=== PATIENT | male | born 1950 | race Caucasian/White ===

== ENCOUNTER 2017-03-25 19:03 | Emergency (ER) | payer MEDICARE, OTHER ==
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
[2017-03-25] MEDS ORDERED: Sodium Chloride 0.9% 1,000 ML IV ONE (19:41)
[2017-03-25 20:16] LABS: CHLORIDE,CL 102 mmol/L (98-110); SODIUM,NA 139 mmol/L (136-146)
[2017-03-25 22:02] VITALS: BP 128/70
[2017-03-25] MEDS ORDERED: Iopamidol 755 MG/ML 500 ML Multipack Bottle IVPUSH STA (22:21)
--- NOTE | 2017-03-26 19:00 | CT ---
EXAM DATE: 03/25/17 PATIENT'S AGE: 66 Patient: JENIFFER FAJARDO Facility: [place], [place] Site . Site : 1950 Study: CT Abdomen/Pelvis [id number]/24/[id number] 9:01:09 PM Ordering Physician: Melissa Simon Final Report: INDICATION : Abdominal pain. TECHNIQUE : CT scan of the abdomen and pelvis. IV CONTRAST Comparison CT scan July 2015. FINDINGS : Lung bases are clear. The head of the pancreas has stippled calcifications with atrophic body of the pancreas. Nonobstructing calcification right kidney. No hydronephrosis. Normal liver, spleen, adrenal glands and left kidney. The GI tract is normal caliber but some diffuse increased fluid is present in the small bowel. No free air. No extraluminal fluid. No mesenteric vein thrombosis or portal vein thrombosis. The prostate is enlarged. Urinary bladder appears normal. Small bilateral inguinal hernias containing fat. Moderate wedging type compression fracture of T12. IMPRESSION : 1. Chronic pancreatitis changes with atrophic pancreatic body and stippled calcification in the head of the pancreas. 2. Nonspecific increased fluid in the small bowel, enteritis could be considered. Correlate with any symptoms of infection. 3. Mild T12 compression fracture correlate with acute symptoms. This is new since previous CT scan July 2015. Please note that all CT scans at this facility use dose modulation, iterative reconstruction, and/or weight-based dosing when appropriate to reduce radiation dose to as low as reasonably achievable. Dictated by Giovany Ortiz MD @ Mar 25 2017 9:30PM (Electronic Signature) Report Signed by Proxy. JHONNYD
== END 2017-03-25 22:11 | disposition home or self-care (01) ==
LOC: MW.ED 19:03
DX: S39.011A Strain of muscle, fascia and tendon of abdomen, initial encounter (principal); I10 Essential (primary) hypertension; E11.9 Type 2 diabetes mellitus without complications; F17.210 Nicotine dependence, cigarettes, uncomplicated; Z88.8 Allergy status to other drugs, medicaments and biological substances; Z79.4 Long term (current) use of insulin; Z79.82 Long term (current) use of aspirin; X50.0XXA Overexertion from strenuous movement or load, initial encounter
CPT/HCPCS: 36415; 74177; 80053; 81001; 85025; 96360; 99284; J7040; Q9967; 99283

== ENCOUNTER 2017-04-12 11:46 | Emergency (ER) | payer MEDICARE, OTHER ==
[2017-04-12 12:03] VITALS: BP 188/89
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
--- NOTE | 2017-04-12 13:59 | CR ---
EXAMINATION: Left knee HISTORY: Pain COMPARISON: None TECHNIQUE: 3 views FINDINGS/IMPRESSION: There is mild joint space narrowing subchondral cystic change within the medial compartment and early osteophyte formation within the patellofemoral compartment.. No fracture or acu te osseous abnormalities demonstrated. There is mild prepatellar soft tissue swelling without a signi ficant joint effusion.
== END 2017-04-12 13:51 | disposition home or self-care (01) ==
LOC: MW.ED 11:46
DX: M25.562 Pain in left knee (principal); E78.00 Pure hypercholesterolemia, unspecified; I10 Essential (primary) hypertension; E11.9 Type 2 diabetes mellitus without complications; F17.210 Nicotine dependence, cigarettes, uncomplicated; Z79.84 Long term (current) use of oral hypoglycemic drugs; Z88.8 Allergy status to other drugs, medicaments and biological substances; Z79.82 Long term (current) use of aspirin; Z79.4 Long term (current) use of insulin
CPT/HCPCS: 73562-26-LT; 73562-LT; 99282; 99283

== ENCOUNTER 2019-01-07 13:01 | Emergency (ER) | payer MEDICARE, OTHER ==
[2019-01-07] MEDS ORDERED: Ketorolac 30 MG/ML SDV IM ONE (13:39)
--- NOTE | 2019-01-07 14:23 | CR ---
EXAMINATION: Left shoulder HISTORY: Pain COMPARISON: None TECHNIQUE: 3 views FINDINGS/IMPRESSION: Old healed mid left clavicle fracture identified. Nondisplaced distal clavicle fracture is noted just proximal to the acromioclavicular joint. Osseous structures otherwise appear osteopenic. Mild glenohumeral osteoarthritic changes.
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
[2019-01-07 14:50] VITALS: BP 130/68
== END 2019-01-07 14:50 | disposition home or self-care (01) ==
LOC: MW.ED 13:01
DX: S42.035A Nondisplaced fracture of lateral end of left clavicle, initial encounter for closed fracture (principal); S50.312A Abrasion of left elbow, initial encounter; S00.81XA Abrasion of other part of head, initial encounter; I10 Essential (primary) hypertension; E11.9 Type 2 diabetes mellitus without complications; F17.210 Nicotine dependence, cigarettes, uncomplicated; Z79.4 Long term (current) use of insulin; Z79.899 Other long term (current) drug therapy; Z88.8 Allergy status to other drugs, medicaments and biological substances; W10.1XXA Fall (on)(from) sidewalk curb, initial encounter
CPT/HCPCS: 73030; 82962; 96372; 99283; J1885

== ENCOUNTER 2019-04-28 13:49 | Emergency (ER) | payer MEDICARE, OTHER ==
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
[2019-04-28 15:08] LABS: CARBON DIOXIDE,CO2 26.2 mmol/L (21.0-32.0); POTASSIUM,K 4.4 mmol/L (3.5-5.1)
[2019-04-28 16:18] VITALS: BP 139/66; PULSE 82
== END 2019-04-28 15:34 | disposition home or self-care (01) ==
LOC: MW.ED 13:49
DX: L02.213 Cutaneous abscess of chest wall (principal); I10 Essential (primary) hypertension; E11.9 Type 2 diabetes mellitus without complications; F17.210 Nicotine dependence, cigarettes, uncomplicated; Z79.4 Long term (current) use of insulin; Z79.899 Other long term (current) drug therapy; Z88.4 Allergy status to anesthetic agent; Z91.048 Other nonmedicinal substance allergy status
CPT/HCPCS: 36415; 80053; 85025; 99283

== ENCOUNTER 2019-06-20 05:46 | Day surgery (SDC) | payer OTHER ==
[2019-06-20] MEDS ORDERED: Sodium Chloride 0.9% 2.5 ML Syringe FLUSH PRN (05:58)
[2019-06-20] MEDS ORDERED: Atropine 0.1 MG/ML 10 ML Syringe IVPUSH PRN ×2 (05:58)
[2019-06-20] MEDS ORDERED: Naloxone 0.4 MG/ML Syringe IVPUSH PRN (05:58)
[2019-06-20] MEDS ORDERED: Albuterol 0.083% 2.5 MG/3 ML Neb Soln NEB PRN (05:58)
[2019-06-20] MEDS ORDERED: Sodium Chloride 0.9% 10 ML SDV IV PRN (05:58)
[2019-06-20] MEDS ORDERED: 50% Dextrose in Water 50 ML Syringe IVPUSH PRN (05:58)
[2019-06-20] MEDS ORDERED: Sodium Chloride 0.9% 10 ML Syringe FLUSH PRN (05:58)
[2019-06-20] MEDS ORDERED: fentaNYL 100 MCG/2 ML SDV IVPUSH PRN (05:58)
[2019-06-20] MEDS ORDERED: EPINEPHrine 1:10,000 1 MG/10 ML Syringe IVPUSH PRN (05:58)
[2019-06-20] MEDS ORDERED: Lidocaine 2% 5 ML SDV ONE (06:08)
[2019-06-20] MEDS ORDERED: Propofol 200 MG/20 ML SDV ONE (06:08)
[2019-06-20] MEDS ORDERED: fentaNYL 100 MCG/2 ML SDV ONE (06:08)
[2019-06-20 06:23] LABS: HEMOGLOBIN A1C 11.1 % (4.5-6.2)
[2019-06-20 06:27] LABS: BLOOD UREA NITROGEN,BUN 22 mg/dL (7.0-18.0); CHLORIDE,CL 98 mmol/L (98-107); GLUCOSE RANDOM 301 mg/dL (74-106); POTASSIUM,K 4.1 mmol/L (3.5-5.1); SODIUM,NA 133 mmol/L (136-148)
[2019-06-20] MEDS ORDERED: Lactated Ringers 1,000 ML IV SCH (06:45)
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
[2019-06-20] MEDS ORDERED: Bupivacaine 25%/EPINEPHrine/PF 30 ML ONE (07:01)
[2019-06-20] MEDS ORDERED: Clindamycin Phosphate in D5W 600 MG in Premix Bag 50 BAG IV ONE ×2 (07:32)
--- NOTE | 2019-06-20 07:34 | PCM.OPNOTE ---
- General Post-Op/Procedure Note Date of Surgery/Procedure: 06/20/19 Operative Procedure(s): i/d R breast mass, bx R breast Findings: subcutaneous abscess under nipple, and breast tissue biopsied; [id number] Pre Op Diagnosis: R breast infection Post-Op Diagnosis: Same Anesthesia Technique: Local, MAC Primary Surgeon: Oniel Castro Pathology: sent Complications: None Condition: Good
--- NOTE | 2019-06-20 07:37 | PCM.POSTAN ---
POST ANESTHESIA ASSESSMENT - MENTAL STATUS Mental Status: Alert, Oriented - VITAL SIGNS Vital Signs: Last Vital Signs Temp 97.5 F 06/20/19 07:12 Pulse 64 06/20/19 07:32 Resp 14 06/20/19 07:32 BP 104/54 L 06/20/19 07:32 Pulse Ox 94 L 06/20/19 07:32 - RESPIRATORY Respiratory Status: Respiratory Rate WNL, Airway Patent, O2 Saturation Stable - CARDIOVASCULAR CV Status: Pulse Rate WNL, Blood Pressure Stable - GASTROINTESTINAL GI Status: No Symptoms - PAIN Pain Score: 0 - POST OP HYDRATION Hydration Status: Adequate & Stable
[2019-06-20] MEDS ORDERED: Clindamycin Phosphate in D5W 50 ML ONE (07:50)
[2019-06-20] MEDS ORDERED: ePHEDrine 50 MG/ML SDV ONE (07:54)
[2019-06-20] MEDS ORDERED: Clindamycin Phosphate in D5W 600 MG in Premix Bag 1 BAG IV ONE ×2 (08:15)
--- NOTE | 2019-06-20 08:48 | PCM48HPAN ---
Post Anesthesia Note - EVALUATION WITHIN 48HRS OF ANESTHETIC Vital Signs in Normal Range: Yes Patient Participated in Evaluation: Yes Respiratory Function Stable: Yes Airway Patent: Yes Cardiovascular Function Stable: Yes Hydration Status Stable: Yes Pain Control Satisfactory: Yes Nausea and Vomiting Control Satisfactory: Yes Mental Status Recovered: Yes Vital Signs: Last Vital Signs Temp 36.4 C 06/20/19 07:12 Pulse 64 06/20/19 07:32 Resp 14 06/20/19 07:32 BP 104/54 L 06/20/19 07:32 Pulse Ox 94 L 06/20/19 07:32 - COMMENTS/OBSERVATIONS Free Text/Narrative:: no anesthesia problems
--- NOTE | 2019-06-20 10:25 | OR ---
SURGEON: Oniel Castro MD DATE OF PROCEDURE: 06/20/2019 PREOPERATIVE DIAGNOSIS: Right breast mass. POSTOPERATIVE DIAGNOSIS: Right breast mass. PROCEDURES PERFORMED: 1. Incision and drainage, right breast mass. 2. Right breast exploration. 3. Biopsy of right breast. PRIMARY SURGEON: Oniel Castro MD. COMPLICATIONS: None. FINDINGS: 1. The patient's right breast mass already drained, ruptured prior to surgery, so a lot of pus already drained out. 2. Under the nipple has several cavities, , not communicating. Several cavities containing abscess. Incision and drainage and Gram stain and biopsy, right breast. DESCRIPTION OF PROCEDURE: The patient was taken to operating room and placed in a supine position. Upon induction of mild general sedation, the patient's right breast was prepped and draped in a sterile fashion. The chest has been shaved prior to coming to the operating room. Time-out was being called. The patient identified, procedure identified, and antibiotic given. Procedure then started. Using a 15 scalpel, a circumferential incision from 11 o'clock to 5 o'clock including rupture draining pinpoint area was opened and led to several cavities under the breast. Using a surgeon's finger, blunt dissection and squeezing and opened up all the cavity and squeezed all the abscess and C and S, aerobic, anaerobic, and Gram stain have been sent. Noted there was a lot of scar tissue from prior surgery and squeezed out some white solid stuff from the nipple, something like a sebaceous cyst, they were solid. Also sent for Gram stain. This was sent for pathology. The area was copiously irrigated and then packed with quarter-inch iodoform gauze and with appropriate dressing. The patient was awakened, transferred to recovery room in hemodynamically stable condition. The patient tolerated the procedure well. There were no intraoperative complications. Dr. Castro was present through the whole procedure. BENITA / EDWAR /[id number]
[2019-06-20 12:20] VITALS: BP 114/64; PULSE 72
== END 2019-06-20 08:30 | disposition home or self-care (01) ==
LOC: MW.SDS 05:46
PROVIDERS: ATTEND Surgery
DX: N61.1 Abscess of the breast and nipple (principal); I10 Essential (primary) hypertension; E78.00 Pure hypercholesterolemia, unspecified; E11.9 Type 2 diabetes mellitus without complications; I25.10 Atherosclerotic heart disease of native coronary artery without angina pectoris; M17.0 Bilateral primary osteoarthritis of knee; F17.210 Nicotine dependence, cigarettes, uncomplicated; Z79.4 Long term (current) use of insulin; Z88.8 Allergy status to other drugs, medicaments and biological substances; Z91.048 Other nonmedicinal substance allergy status
CPT/HCPCS: 19020; 36415; 80048; 82962; 83036; 87070; 87205; 93005; J2001; J2704; J3010; J7120; S0077; J3490

== ENCOUNTER 2019-08-22 06:44 | Day surgery (SDC) | payer OTHER ==
[~2019-08-22 06:44] MED LIST: Lactated Ringers 1,000 ML IV SCH; ceFAZolin 2 GM in Premix Bag 1 BAG IV ONE
[2019-08-22] MEDS ORDERED: fentaNYL 100 MCG/2 ML SDV ONE (07:15)
[2019-08-22] MEDS ORDERED: Propofol 200 MG/20 ML SDV ONE (07:15)
[2019-08-22] MEDS ORDERED: Midazolam 1 MG/ML 2 ML SDV ONE (07:15)
[2019-08-22] MEDS ORDERED: Ondansetron 4 MG/2 ML SDV ONE (07:15)
[2019-08-22] MEDS ORDERED: Bupivacaine 25%/EPINEPHrine/PF 30 ML ONE (07:25)
[2019-08-22] MEDS ORDERED: Octyl 2-Cyanoacrylate 1 Tube ONE (07:25)
--- NOTE | 2019-08-22 07:26 | PCM.PREANE ---
Preanesthetic Assessment - Anesthesia/Transfusion/Family Hx Anesthesia History: Prior Anesthesia Reaction Other Type of Anesthesia Reaction Comment: Adverse reaction to Versed Family History of Anesthesia Reaction: No Transfusion History: No Prior Transfusion(s) Intubation History: Unknown - Review of Systems General: No Symptoms Pulmonary: No Symptoms Cardiovascular: No Symptoms Gastrointestinal: No Symptoms Neurological: No Symptoms Other: Reports: None - Physical Assessment Height: 5 ft 7 in Weight: 68.492 kg ASA Class: 3 Mental Status: Alert & Oriented x3 Airway Class: Mallampati = 2 Dentition: Reports: Normal Dentition (4 teeth left in lower jaw), Partial (4 teeth upper (only teeth there)) Thyro-Mental Finger Breadths: 3 Mouth Opening Finger Breadths: 3 ROM/Head Extension: Full Lungs: Clear to Auscultation, Normal Respiratory Effort Cardiovascular: Regular Rate, Regular Rhythm - Allergies Allergies/Adverse Reactions: Allergies Allergy/AdvReac Type Severity Reaction Status Date / Time mercury (elemental) Allergy Rash Verified 08/18/19 10:22 midazolam HCl [From Versed] Allergy Change Verified 08/18/19 10:22 Mental Status - Blood Blood Available: No - Anesthesia Plan Pre-Op Medication Ordered: None - Acknowledgements Anesthesia Type Planned: General Anesthesia Pt an Appropriate Candidate for the Planned Anesthesia: Yes Alternatives and Risks of Anesthesia Discussed w Pt/Guardian: Yes Pt/Guardian Understands and Agrees with Anesthesia Plan: Yes PreAnesthesia Questionnaire HEENT History: Reports: Other (See Below) Other HEENT History: wears glasses, has upper partial removable denture Cardiovascular History: Reports: CAD, Hypertension Other Cardiovascular History: previoiusly took medication for hypertention- stopped a "few months" ago because of hypotention Respiratory History: Reports: None Other Respiratory History: 55 yr history of smoking, current use 1 pack per day Gastrointestinal History: Reports: Diverticulosis (sigmoid) Other Gastrointestinal History: hx: Pancreatic surgery Genitourinary History: Reports: Renal Calculus Other Genitourinary History: passed kidney stone 4 months ago Musculoskeletal History: Reports: Fracture, Osteoarthritis Other Musculoskeletal History: hx of fx wrist Neurological History: Reports: Concussion, Head Trauma Psychiatric History: Reports: None Endocrine/Metabolic History: Reports: IDDM Hematologic History: Reports: None Immunologic History: Reports: None Oncologic (Cancer) History: Reports: None Dermatologic History: Reports: None - Infectious Disease History Infectious Disease History: Reports: Chicken Pox - Past Surgical History Head Surgeries/Procedures: Reports: None HEENT Surgical History: Reports: None Cardiovascular Surgical History: Reports: None Respiratory Surgical History: Reports: None GI Surgical History: Reports: Other (See Below) Other GI Surgeries/Procedures: repair of traumatic injury to pancreas ( pancreatic resection) Neurological Surgical History: Reports: None Musculoskeletal Surgical History: Reports: Other (See Below) Other Musculoskeletal Surgeries/Procedures:: excision of infected right breast mass a few weeks ago, has been draining and has been on antibiotics recently Oncologic Surgical History: Reports: Other (See Below) - SUBSTANCE USE Smoking Status *Q: Current Every Day Smoker (< 1ppd) Tobacco Use Within Last Twelve Months: Cigarettes Recreational Drug Use History: No - HOME MEDS Home Medications: Home Meds Insulin Glarg,Human.Rec.Analog [LantUS Solostar] 26 units SUBCUT BEDTIME [History] Alogliptin Benzoate [Alogliptin] 25 mg PO QAM 06/19/19 [History] - CURRENT (IN HOUSE) MEDS Current Meds: Current Medications Lactated Ringer's (Ringers, Lactated) 1,000 mls @ 125 mls/hr IV ASDIRECTED ROSENDO Discontinued Medications Fentanyl (Sublimaze) Confirm Administered Dose 100 mcg .ROUTE .STK-MED ONE Stop: 08/22/19 07:16 Cefazolin Sodium/Dextrose 2 gm (/ Premix) 50 mls @ 100 mls/hr IV ONETIME ONE Stop: 08/22/19 05:29 Midazolam HCl (Versed 1 Mg/Ml) Confirm Administered Dose 2 mg .ROUTE .STK-MED ONE Stop: 08/22/19 07:16 Ondansetron HCl (Zofran) Confirm Administered Dose 4 mg .ROUTE .STK-MED ONE Stop: 08/22/19 07:16 Propofol (Diprivan 20 Ml) Confirm Administered Dose 200 mg .ROUTE .STK-MED ONE Stop: 08/22/19 07:16
[2019-08-22] MEDS ORDERED: ceFAZolin 1 GM Vial ONE (08:10)
[2019-08-22] MEDS ORDERED: Sodium Chloride 0.9% 20 ML ONE (08:10)
[2019-08-22] MEDS ORDERED: Ketorolac 30 MG/ML SDV ONE (08:25)
--- NOTE | 2019-08-22 09:22 | PCM.POSTAN ---
POST ANESTHESIA ASSESSMENT - MENTAL STATUS Mental Status: Alert, Oriented - VITAL SIGNS Vital Signs: Last Vital Signs Temp 97.3 F 08/22/19 09:05 Pulse 60 08/22/19 09:20 Resp 13 08/22/19 09:20 BP 138/71 08/22/19 09:20 Pulse Ox 96 08/22/19 09:20 - RESPIRATORY Respiratory Status: Respiratory Rate WNL, Airway Patent, O2 Saturation Stable - CARDIOVASCULAR CV Status: Pulse Rate WNL, Blood Pressure Stable - GASTROINTESTINAL GI Status: No Symptoms - POST OP HYDRATION Hydration Status: Adequate & Stable - OBSERVATIONS Free Text/Narrative:: Pt alert and stable for discharge to phase II recovery.
--- NOTE | 2019-08-22 09:44 | PCM.OPNOTE ---
- General Post-Op/Procedure Note Date of Surgery/Procedure: 08/22/19 Operative Procedure(s): excisional biospy Findings: large well encapsulated mass on the medial R upper thigh, and a small skin lesion on the scrotum; skin incision 4.1 X 3 cm, margin 0.5 mm; [id number] Pre Op Diagnosis: scrotal masses Post-Op Diagnosis: Same Anesthesia Technique: General ET Tube Primary Surgeon: Oniel Castro Pathology: sent Complications: None Condition: Good Free Text/Narrative:: Intake & Output 08/21/19 08/22/19 08/22/19 22:59 06:59 14:59 Intake Total 950 Balance 950
--- NOTE | 2019-08-22 09:52 | PCM48HPAN ---
Post Anesthesia Note - EVALUATION WITHIN 48HRS OF ANESTHETIC Vital Signs in Normal Range: Yes Patient Participated in Evaluation: Yes Respiratory Function Stable: Yes Airway Patent: Yes Cardiovascular Function Stable: Yes Hydration Status Stable: Yes Pain Control Satisfactory: Yes Nausea and Vomiting Control Satisfactory: Yes Mental Status Recovered: Yes Vital Signs: Last Vital Signs Temp 36.3 C 08/22/19 09:05 Pulse 60 08/22/19 09:20 Resp 13 08/22/19 09:20 BP 138/71 08/22/19 09:20 Pulse Ox 96 08/22/19 09:20 - COMMENTS/OBSERVATIONS Free Text/Narrative:: No anesthesia problems.
[2019-08-22 10:43] VITALS: BP 139/70; PULSE 61
--- NOTE | 2019-08-22 13:36 | OR ---
SURGEON: Oniel Castro MD DATE OF PROCEDURE: 08/22/2019 PREOPERATIVE DIAGNOSIS: Scrotal mass. POSTOPERATIVE DIAGNOSIS: Scrotal mass. PROCEDURE PERFORMED: Excisional biopsy. PRIMARY SURGEON: Oniel Castro MD. COMPLICATIONS: None. FINDINGS: A large well encapsulated mass on the medial right upper thigh and a small skin lesion on the scrotum and both excised into one piece connected by a piece of skin. Skin incision 4.1 x 3 cm, margin is 0.5 mm. DESCRIPTION OF PROCEDURE: The patient was taken to the operating room, placed in the supine position. Upon induction of general endotracheal anesthesia, the patient's right scrotal area was prepped and draped in a sterile fashion and has been shaved prior to this. Time-out was being called, patient identified, procedure identified, and IV Ancef 2 g given too. On excision, no area had been marked. The patient had 2 masses, one is between the skin of the thigh and the scrotum, another one is very close to it. Probably about 10 mm from the mass is a skin lesion, about a size of 5 mm. Since they were so close, it was decided to excise them together. A fish-mouth incision was made, which connected the masses. As a matter of fact, the mass was more to the medial aspect of the upper right thigh than on the scrotum, and the skin lesion was on the scrotal surface, so the excision was only on the skin, did not get into the scrotum, did not go through the dartos muscle. The whole mass was sent for frozen, came back as sebaceous cyst. Good hemostasis achieved by use of electrocautery. The incision was about 4.1 x 3 cm and irrigated and closed with 3-0 Ethilon simple interrupted and followed with bacitracin cream. The patient was then awakened, extubated, and transferred to recovery in hemodynamically stable condition. The patient tolerated the procedure well. There were no intraoperative complications. Dr. Castro was present through the whole procedure. BENITA / EDWAR /[id number]
== END 2019-08-22 10:10 | disposition home or self-care (01) ==
LOC: MW.SDS 06:44
PROVIDERS: ATTEND Surgery
DX: L72.0 Epidermal cyst (principal); I10 Essential (primary) hypertension; E78.00 Pure hypercholesterolemia, unspecified; I25.10 Atherosclerotic heart disease of native coronary artery without angina pectoris; E11.9 Type 2 diabetes mellitus without complications; M17.0 Bilateral primary osteoarthritis of knee; F17.210 Nicotine dependence, cigarettes, uncomplicated; Z88.8 Allergy status to other drugs, medicaments and biological substances; Z79.4 Long term (current) use of insulin; Z91.048 Other nonmedicinal substance allergy status
CPT/HCPCS: 11426; 88304; 88331; J0690; J1885; J2405; J2704; J3010; J7120; A9270-GY; J2250

== ENCOUNTER 2019-11-08 14:41 | Emergency (ER) | payer OTHER, MEDICARE ==
[2019-11-08] MEDS ORDERED: Nitroglycerin 0.4 MG Tab.SL SL PRN (14:46)
[2019-11-08] MEDS ORDERED: Sodium Chloride 0.9% 2.5 ML Syringe FLUSH PRN ×2 (14:46)
[2019-11-08] MEDS ORDERED: Sodium Chloride 0.9% 10 ML Syringe FLUSH PRN (14:46)
[2019-11-08] MEDS ORDERED: Morphine 4 MG/ML Syringe IVPUSH ONE (14:47)
[2019-11-08] MEDS ORDERED: Ondansetron 4 MG/2 ML SDV ONE (14:50)
[2019-11-08] MEDS ORDERED: Heparin Sodium 5,000 Units/ML Vial IVPUSH ONE (14:50)
[2019-11-08] MEDS ORDERED: Heparin Sod,Pork In 0.45% Nacl 25,000 UNIT/500 ML IV.SOLN IV SCH (14:50)
--- NOTE | 2019-11-08 14:55 | EDM.PDOC ---
ED HPI GENERAL MEDICAL PROBLEM - General Chief Complaint: Cardiovascular Problem Stated Complaint: HEART ATTACK Time Seen by Provider: 11/08/19 14:45 - History of Present Illness INITIAL COMMENTS - FREE TEXT/NARRATIVE: History of present illness: [Presents 45 minutes after sudden onset of substernal chest pain that caused shortness of breath radiation into the jaw nausea and sweating. He is never had this kind of thing before is a history of diabetes and tobacco abuse. She received 325 aspirin in route he is actively having chest pain in the emergency department ] Review of systems: As per history of present illness and below otherwise all systems reviewed and negative. Past medical history: As per history of present illness and as reviewed below otherwise noncontributory. Surgical history: As per history of present illness and as reviewed below otherwise noncontributory. Social history: No reported history of drug or alcohol abuse. Family history: As per history of present illness and as reviewed below otherwise noncontributory. Physical exam: HEENT: Atraumatic, normocephalic, pupils reactive, negative for conjunctival pallor or scleral icterus, mucous membranes moist, throat clear, neck supple, nontender, trachea midline. Lungs: Clear to auscultation, breath sounds equal bilaterally, chest nontender. Heart: S1S2, regular, negative for clicks, rubs, or JVD. Abdomen: Soft, nondistended, nontender. Negative for masses or hepatosplenomegaly. Negative for costovertebral tenderness. Pelvis: Stable nontender. Genitourinary: Deferred. Rectal: Deferred. Extremities: Atraumatic, negative for cords or calf pain. Neurovascular unremarkable. Neuro: Awake, alert, oriented. Cranial nerves II through XII unremarkable. Cerebellum unremarkable. Motor and sensory unremarkable throughout. Exam nonfocal. Skin: Diaphoretic Diagnostics: [] Therapeutics: [] Impression: [] Plan: Patient will be emergently transferred to [facility] at [facility] [] Definitive disposition and diagnosis as appropriate pending reevaluation and review of above. Chest Pain Score (Numeric/FACES): 10 - Related Data Allergies Allergy/AdvReac Type Severity Reaction Status Date / Time midazolam HCl [From Versed] Allergy Severe Change Verified 11/08/19 14:49 Mental Status mercury (elemental) Allergy Rash Verified 11/08/19 14:49 Home Meds: Home Meds Insulin Glarg,Human.Rec.Analog [LantUS Solostar] 26 units SUBCUT BEDTIME [History] Alogliptin Benzoate [Alogliptin] 25 mg PO QAM 06/19/19 [History] Past Medical History HEENT History: Reports: Other (See Below) Other HEENT History: wears glasses, has upper partial removable denture Cardiovascular History: Reports: CAD, Hypertension Other Cardiovascular History: previoiusly took medication for hypertention- stopped a "few months" ago because of hypotention Respiratory History: Reports: None Other Respiratory History: 55 yr history of smoking, current use 1 pack per day Gastrointestinal History: Reports: Diverticulosis Other Gastrointestinal History: hx: Pancreatic surgery Genitourinary History: Reports: Renal Calculus Other Genitourinary History: passed kidney stone 4 months ago Musculoskeletal History: Reports: Fracture, Osteoarthritis Other Musculoskeletal History: hx of fx wrist Neurological History: Reports: Concussion, Head Trauma Psychiatric History: Reports: None Endocrine/Metabolic History: Reports: IDDM Hematologic History: Reports: None Immunologic History: Reports: None Oncologic (Cancer) History: Reports: None Dermatologic History: Reports: None - Infectious Disease History Infectious Disease History: Reports: Chicken Pox - Past Surgical History Head Surgeries/Procedures: Reports: None HEENT Surgical History: Reports: None Cardiovascular Surgical History: Reports: None Respiratory Surgical History: Reports: None GI Surgical History: Reports: Other (See Below) Other GI Surgeries/Procedures: repair of traumatic injury to pancreas ( pancreatic resection) Neurological Surgical History: Reports: None Musculoskeletal Surgical History: Reports: Other (See Below) Other Musculoskeletal Surgeries/Procedures:: excision of infected right breast mass a few weeks ago, has been draining and has been on antibiotics recently Oncologic Surgical History: Reports: Other (See Below) Social & Family History - Family History Family Medical History: Noncontributory - Caffeine Use Caffeine Use: Reports: None ED ROS GENERAL - Review of Systems Review Of Systems: See Below ED EXAM, GENERAL - Physical Exam Exam: See Below Course - Vital Signs Text/Narrative:: Prehospital EKG reveals ST segment elevation clearly in [address] segment depressions in V1 to 3 and 4 read interpreted by me the rate was atrial fibrillation at 44 bpm In-hospital EKG at 2:41 PM reveals an atrial fibrillation rate of 47 bpm with right bundle branch block there is ST segment elevation markedly in lead III moderately and aVF with profound ST segment depressions in V1 to 3 and 4 read interpreted by me EKGs indicate an acute ST segment elevation myocardial infarction. Jenniffer the case with Dr. Guerra at [facility] emergency department they will accept the patient he will be emergently transferred to the emergency department at that facility where he will be able to go to [facility] Patient received aspirin prior to arrival he will get morphine Zofran and nitroglycerin with heparin drip and bolus in the emergency department prior to transfer. Last Recorded V/S: Last Vital Signs Temp 36.4 C 11/08/19 14:46 Pulse 48 L 11/08/19 14:46 Resp 22 H 11/08/19 14:46 BP 151/87 H 11/08/19 14:46 Pulse Ox 100 11/08/19 14:46 - Orders/Labs/Meds Orders: Active Orders 24 hr Category Date Time Status EKG Documentation Completion [RC] STAT Care 11/08/19 14:46 Ordered Chest 1V Frontal [CR] Stat Exams 11/08/19 14:46 Ordered CBC WITH AUTO DIFF [HEME] Stat Lab 11/08/19 14:46 Ordered COMPREHENSIVE METABOLIC PN,CMP [CHEM] Stat Lab 11/08/19 14:46 Ordered TROPONIN I [CHEM] Stat Lab 11/08/19 14:46 Ordered Nitroglycerin [Nitrostat] Med 11/08/19 14:46 Ordered 0.4 mg SL Q5M PRN Sodium Chloride 0.9% [Saline Flush] Med 11/08/19 14:46 Ordered 10 ml FLUSH ASDIRECTED PRN Sodium Chloride 0.9% [Saline Flush] Med 11/08/19 14:46 Ordered 2.5 ml FLUSH ASDIRECTED PRN Sodium Chloride 0.9% [Saline Flush] Med 11/08/19 14:46 Ordered 2.5 ml FLUSH ASDIRECTED PRN Saline Lock Insert [OM.PC] Stat Oth 11/08/19 14:46 Ordered Medication Orders Nitroglycerin (Nitrostat) 0.4 mg SL Q5M PRN PRN Reason: Chest Pain Sodium Chloride (Saline Flush) 2.5 ml FLUSH ASDIRECTED PRN PRN Reason: Keep Vein Open Sodium Chloride (Saline Flush) 10 ml FLUSH ASDIRECTED PRN PRN Reason: Keep Vein Open Sodium Chloride (Saline Flush) 2.5 ml FLUSH ASDIRECTED PRN PRN Reason: Keep Vein Open Meds: Medications Generic Name Dose Route Start Last Admin Trade Name Freq PRN Reason Stop Dose Admin Nitroglycerin 0.4 mg 11/08/19 14:46 Nitrostat SL Q5M PRN Chest Pain Sodium Chloride 2.5 ml 11/08/19 14:46 Saline Flush FLUSH ASDIRECTED PRN Keep Vein Open Sodium Chloride 10 ml 11/08/19 14:46 Saline Flush FLUSH ASDIRECTED PRN Keep Vein Open Sodium Chloride 2.5 ml 11/08/19 14:46 Saline Flush FLUSH ASDIRECTED PRN Keep Vein Open Discontinued Medications Generic Name Dose Route Start Last Admin Trade Name Freq PRN Reason Stop Dose Admin Morphine Sulfate 4 mg 11/08/19 14:47 Morphine IVPUSH 11/08/19 14:48 ONETIME ONE Departure - Departure Time of Disposition: 14:52 Disposition: DC/Tfer to Acute Hospital 02 Reason for Transfer *Q: Primary PCI Indicated Condition: Fair Clinical Impression: Chest pain Acute myocardial infarction Qualifiers: Myocardial infarction type: ST elevation myocardial infarction Sepsis Event Note - Evaluation Sepsis Screening Result: No Definite Risk - Focused Exam Vital Signs: Vital Signs Temp Pulse Resp BP Pulse Ox 11/08/19 14:46 36.4 C 48 L 22 H 151/87 H 100 Date Exam was Performed: 11/08/19 Time Exam was Performed: 14:50 - My Orders Last 24 Hours: My Active Orders 11/08/19 14:46 EKG Documentation Completion [RC] STAT Chest 1V Frontal [CR] Stat CBC WITH AUTO DIFF [HEME] Stat COMPREHENSIVE METABOLIC PN,CMP [CHEM] Stat TROPONIN I [CHEM] Stat Nitroglycerin [Nitrostat] 0.4 mg SL Q5M PRN Sodium Chloride 0.9% [Saline Flush] 10 ml FLUSH ASDIRECTED PRN Sodium Chloride 0.9% [Saline Flush] 2.5 ml FLUSH ASDIRECTED PRN Sodium Chloride 0.9% [Saline Flush] 2.5 ml FLUSH ASDIRECTED PRN Saline Lock Insert [OM.PC] Stat - Assessment/Plan Last 24 Hours: My Active Orders 11/08/19 14:46 EKG Documentation Completion [RC] STAT Chest 1V Frontal [CR] Stat CBC WITH AUTO DIFF [HEME] Stat COMPREHENSIVE METABOLIC PN,CMP [CHEM] Stat TROPONIN I [CHEM] Stat Nitroglycerin [Nitrostat] 0.4 mg SL Q5M PRN Sodium Chloride 0.9% [Saline Flush] 10 ml FLUSH ASDIRECTED PRN Sodium Chloride 0.9% [Saline Flush] 2.5 ml FLUSH ASDIRECTED PRN Sodium Chloride 0.9% [Saline Flush] 2.5 ml FLUSH ASDIRECTED PRN Saline Lock Insert [OM.PC] Stat
[2019-11-08] MEDS ORDERED: Heparin Sod,Pork In 0.45% Nacl 25,000 UNIT/500 ML IV.SOLN IV ONE (14:56)
[2019-11-08] MEDS ORDERED: Ondansetron 4 MG/2 ML SDV IVPUSH ONE (14:56)
--- NOTE | 2019-11-08 15:09 | CR ---
Chest: Portable view of the chest was obtained. Comparison: Prior chest x-ray of 03/25/[address] of 05/08/19. Lung markings are increased which appeared to be chronic. Nodular density is noted within the left midlung which is an interval change. Lungs otherwise are clear with nothing acute being seen. Heart size within normal limits for portable technique. Degenerative change is noted within the spine. Impression: 1. Nodular opacity within the left mid chest. This is not seen on prior studies. Noncontrast chest CT recommended to see if this represents a real nodule. 2. Chronic interstitial change. Diagnostic code #9 This report was dictated in MDT
[2019-11-08 15:24] VITALS: BP 151/112; PULSE 74
[2019-11-08 15:35] LABS: CHLORIDE,CL 100 mmol/L (98-107); POTASSIUM,K 3.6 mmol/L (3.5-5.1); SODIUM,NA 137 mmol/L (136-148)
[2019-11-08 15:45] LABS: BLOOD UREA NITROGEN,BUN 16 mg/dL (7.0-18.0); CARBON DIOXIDE,CO2 22.2 mmol/L (21.0-32.0); GLUCOSE RANDOM 275 mg/dL (74-106)
== END 2019-11-08 15:21 ==
LOC: MW.ED 14:41
DX: I21.3 ST elevation (STEMI) myocardial infarction of unspecified site (principal); I25.10 Atherosclerotic heart disease of native coronary artery without angina pectoris; I10 Essential (primary) hypertension; E11.9 Type 2 diabetes mellitus without complications; F17.210 Nicotine dependence, cigarettes, uncomplicated; Z79.4 Long term (current) use of insulin; Z88.4 Allergy status to anesthetic agent
CPT/HCPCS: 36415; 71045; 80053; 84484; 85025; 93005; 96374; 96375; 99285; J1644; J2270; J2405; 99284

== ENCOUNTER 2020-06-18 04:20 | Emergency (ER) | payer MEDICARE, OTHER ==
--- NOTE | 2020-06-18 04:23 | EDM.PDOC ---
ED HPI GENERAL MEDICAL PROBLEM - General Chief Complaint: Chest Pain Stated Complaint: CHEST IS BURNING Time Seen by Provider: 06/18/20 04:21 Source of Information: Reports: Patient, Old Records History Limitations: Reports: No Limitations - History of Present Illness INITIAL COMMENTS - FREE TEXT/NARRATIVE: This is a very pleasant 69-year-old male with a past medical history of myocardial infarction and coronary artery disease, diabetes mellitus presenting with chest discomfort. He was seen in our emergency department in October 2019 where he was noted to have a STEMI and was emergently transferred to the [facility] in [place]. Patient reports a 1 day history of right-sided chest pain described as "burning". Isolated to the area of the right areola and the surrounding soft ti ssue around the right nipple. Patient has a history of a chest wall abscess that required drainage by Dr. Castro. He reports occasional persistent purulent drainage which she is able to express. This morning, around 1 AM, he began experiencing burning chest pain to the site of his abscess which was drained quite a while ago. This burning sensation started to spread out laterally from the areola and he is concerned that he may have "popped something". He denies any fever, chills, cough, shortness of breath. Denies diaphoresis, nausea, or vomiting. Patient denies history of venous thromboembolism, lower extremity pain or swelling, hemoptysis, recent surgery or immobilization or long travel, history of active malignancy, or hormonal medication/product usage. ROS: A 10-point review of systems was negative, except as noted in the HPI (or in the ROS section of this note). Past medical history: Reviewed, no additional pertinent history. Surgical history: Reviewed in system, no additional pertinent history. Social history: Reviewed in system, no additional pertinent history. Family history: Reviewed in system, no additional pertinent history. PHYSICAL EXAM Vital signs reviewed. Nursing notes reviewed. Constitutional: Awake, alert, non-distressed. Head: Normocephalic, atraumatic. Eyes: EOMI, conjunctiva normal, no discharge, no scleral icterus. Ears, Nose, Throat: External ears and nose normal, moist oral mucosa. Cardiovascular: 2+ radial pulse, capillary refill less than 2 seconds. Pulmonary: normal work of breathing, no accessory muscle use. Abdomen/GI: Soft, nontender, nondistended, no guarding or rigidity, no masses. Musculoskeletal: No deformities. Integumentary: Appropriate color for ethnicity, warm, dry, no pallor or jaundice, no rash. There is a well-healed surgical incision scar to the left side of the right areola. The patient is quite tender over the right areola and the tissues just lateral to the right areola, but I do not appreciate any fluctuance or fluid collection to suggest an abscess and there is no rash. Neurologic: Alert, answering questions appropriately, normal speech, no facial droop, moving all extremities well. Psychiatric: Appropriate mood and affect, normal thought process. This patient was seen and evaluated during the 2019 SARS-CoV-2 novel coronavirus pandemic period. Community viral transmission is ongoing at time of this encounter and the emergency department is operating under pandemic response procedures. right nipple area Pain Score (Numeric/FACES): 7 - Related Data Allergies Allergy/AdvReac Type Severity Reaction Status Date / Time midazolam HCl [From Versed] Allergy Severe Change Verified 06/18/20 04:34 Mental Status mercury (elemental) Allergy Rash Verified 06/18/20 04:34 Home Meds: Home Meds Insulin Glarg,Human.Rec.Analog [LantUS Solostar] 30 units SUBCUT BEDTIME 03/25/17 [History] Aspirin 1 tab PO DAILY 06/18/20 [History] Clopidogrel [Plavix] 75 mg PO DAILY 06/18/20 [History] Insulin Aspart [NovoLOG] 1 injection INJECT ASDIRECTED 06/18/20 [History] Rosuvastatin [Crestor] 10 mg PO DAILY 06/18/20 [History] Past Medical History HEENT History: Reports: Other (See Below) Other HEENT History: wears glasses, has upper partial removable denture Cardiovascular History: Reports: CAD, Hypertension Other Cardiovascular History: previoiusly took medication for hypertention- stopped a "few months" ago because of hypotention Respiratory History: Reports: None Other Respiratory History: 55 yr history of smoking, current use 1 pack per day Gastrointestinal History: Reports: Diverticulosis Other Gastrointestinal History: hx: Pancreatic surgery Genitourinary History: Reports: Renal Calculus Other Genitourinary History: passed kidney stone 4 months ago Musculoskeletal History: Reports: Fracture, Osteoarthritis Other Musculoskeletal History: hx of fx wrist Neurological History: Reports: Concussion, Head Trauma Psychiatric History: Reports: None Endocrine/Metabolic History: Reports: IDDM Hematologic History: Reports: None Immunologic History: Reports: None Oncologic (Cancer) History: Reports: None Dermatologic History: Reports: None - Infectious Disease History Infectious Disease History: Reports: Chicken Pox - Past Surgical History Head Surgeries/Procedures: Reports: None HEENT Surgical History: Reports: None Cardiovascular Surgical History: Reports: None Respiratory Surgical History: Reports: None GI Surgical History: Reports: Other (See Below) Other GI Surgeries/Procedures: repair of traumatic injury to pancreas (pancreatic resection) Neurological Surgical History: Reports: None Musculoskeletal Surgical History: Reports: Other (See Below) Other Musculoskeletal Surgeries/Procedures:: excision of infected right breast mass a few weeks ago, has been draining and has been on antibiotics recently Oncologic Surgical History: Reports: Other (See Below) Social & Family History - Family History Family Medical History: No Pertinent Family History - Caffeine Use Caffeine Use: Reports: None ED ROS GENERAL - Review of Systems Review Of Systems: See Below ED EXAM, GENERAL - Physical Exam Exam: See Below ED ULTRASOUND - Evaluation of Abscess Location: Right nipple/areola Abscess Identified: No Loculations noted: No US Evaluation of Abscess Text: No drainable abscess visualized. #1 Interpretation EKG Interpretation Comments: 12-Lead ECG Interpretation Acquired: 4:38 AM Rhythm: Sinus rhythm Rate: 73 bpm Thayer: Normal Intervals: Right bundle branch block Ectopy: None RV Strain: No obvious RV strain pattern. ST Segments/T-Waves: Old inferior myocardial infarction with Q waves in II, III, aVF. Acute Ischemic Changes: None apparent Interpretation: No STEMI Course - Vital Signs Text/Narrative:: 61-year-old male presenting with right-sided chest pain described as "burning". Patient hemodynamically stable, afebrile, well-appearing, looks nontoxic. Differential diagnosis includes but is not limited to: Acute coronary syndrome, pneumothorax, pleurisy, GERD, early shingles, occult trauma, pulmonary embolism, and many others. Twelve-lead EKG looks nonischemic. We will plan for IV access, labs, chest x- rays, pain control, second troponin. 5:48 AM: Chest x-rays are clear. CBC reassuring. Metabolic panel shows hyperglycemia but normal CO2. Renal function electrolytes are reassuring. Troponin is negative. Twelve-lead EKG looks nonischemic, shows old inferior myocardial infarction. I think this could very possibly be early zoster given the description of burning pain and tenderness to light touch (no rash yet) but we are going to obtain a contrasted CT study of the chest to evaluate for any recurrence of the chest wall abscess that required drainage earlier this year. The chest wall seems fairly tender to palpation and I have low suspicion for acute coronary syndrome or pulmonary embolism given that patient's description of the pain and physical examination findings. Patient denies any central or left-sided chest discomfort or any shortness of breath and he has a Wells PE score of 0. He has a heart score of 4 at baseline but I have low suspicion for acute coronary syndrome based on my gestalt. 6:02 AM: Chest CT shows no acute findings, noted stable mild interstitial pulmonary fibrosis. Evaluation of the chest wall shows a surgical clip and soft tissue induration medial and posterior to the right nipple about 1.5 cm in size. I did speak with the reading radiologist who could not exclude an abscess. I did perform [id number] limited ultrasound and I noted no drainable fluid co llection to suggest an abscess requiring I&D. Patient states that he was expressing drainage from the area of his prior surgical I&D site but I did not appreciate any drainable abscess based on my physical examination of the area in question. At this point there is no objective evidence of myocardial ischemia. My suspicion for ACS or pulmonary embolism is quite low. I did discuss with the patient staying for a second troponin at about 8:00, but he wishes to go home and wants to decline this. There are no pulmonary infiltrates to suggest pneumonia. The pain is not pleuritic in nature and there is no history of any trauma. I suspect that the patient could be experiencing early shingles. We will plan to discharge him home with symptomatic treatment with extra strength acetaminophen and lidocaine patches along with a heating pad. I counseled the patient that should he develop a rash, he should be reevaluated by primary care physician or here in the emergency department to start antiviral therapy for shingles. Plan: Patient is stable to discharge home with outpatient primary care clinic follow-up. Strict emergency department return precautions were provided, patient indicated understanding. All questions were answered prior to departure. Discharged in good condition. Last Recorded V/S: Last Vital Signs Temp 36.1 C 06/18/20 04:30 Pulse 67 06/18/20 06:00 Resp 18 06/18/20 06:00 BP 125/66 06/18/20 06:00 Pulse Ox 97 06/18/20 06:00 - Orders/Labs/Meds Orders: Active Orders 24 hr Category Date Time Status Cardiac Monitoring [RC] . DIRECTED Care 06/18/20 04:45 Active EKG 12 Lead [EKG Documentation Completion] [RC] STAT Care 06/18/20 04:21 Active Pulse Oximetry [RC] ASDIRECTED Care 06/18/20 04:45 Active Labs: Laboratory Tests 06/18/20 06/18/20 Range/Units 04:50 04:50 WBC 8.06 (4.0-11.0) K/uL RBC 4.96 (4.50-5.90) M/uL Hgb 15.3 (13.0-17.0) g/dL Hct 45.5 (38.0-50.0) % MCV 91.7 (80.0-98.0) fL MCH 30.8 (27.0-32.0) pg MCHC 33.6 (31.0-37.0) g/dL RDW Std Deviation 43.4 (28.0-62.0) fl RDW Coeff of Fahad 13 (11.0-15.0) % Plt Count 187 (150-400) K/uL MPV 11.10 (7.40-12.00) fL Neut % (Auto) 59.8 (48.0-80.0) % Lymph % (Auto) 24.9 (16.0-40.0) % Cannon % (Auto) 13.0 (0.0-15.0) % Eos % (Auto) 1.9 (0.0-7.0) % Baso % (Auto) 0.4 (0.0-1.5) % Neut # (Auto) 4.8 (1.4-5.7) K/uL Lymph # (Auto) 2.0 (0.6-2.4) K/uL Cannon # (Auto) 1.1 H (0.0-0.8) K/uL Eos # (Auto) 0.2 (0.0-0.7) K/uL Baso # (Auto) 0.0 (0.0-0.1) K/uL Nucleated RBC % 0.0 /100WBC Nucleated RBCs # 0 K/uL Sodium 138 (136-148) mmol/L Potassium 4.4 (3.5-5.1) mmol/L Chloride 102 (98-107) mmol/L Carbon Dioxide 26.7 (21.0-32.0) mmol/L BUN 16 (7.0-18.0) mg/dL Creatinine 1.3 (0.8-1.3) mg/dL Est Cr Clr Drug Dosing 52.34 mL/min Estimated GFR (MDRD) 54.9 ml/min Glucose 183 H (74-106) mg/dL Calcium 8.9 (8.5-10.1) mg/dL Total Bilirubin 0.4 (0.2-1.0) mg/dL AST 30 (15-37) IU/L ALT 71 H (14-63) IU/L Alkaline Phosphatase 82 (46-116) U/L Troponin I < 0.050 (0.000-0.056) ng/mL Total Protein 6.9 (6.4-8.2) g/dL Albumin 3.7 (3.4-5.0) g/dL Globulin 3.2 (2.6-4.0) g/dL Albumin/Globulin Ratio 1.2 (0.9-1.6) Meds: Medications Discontinued Medications Generic Name Dose Route Start Last Admin Trade Name Freq PRN Reason Stop Dose Admin Acetaminophen 1,000 mg 06/18/20 04:48 06/18/20 05:13 Tylenol Extra Strength PO 06/18/20 04:49 1,000 mg ONETIME ONE Administration Iopamidol 75 ml 06/18/20 05:59 06/18/20 06:01 Isovue Multipack-370 (76%) IVPUSH 06/18/20 06:00 75 ml ONETIME STA Administration Lidocaine 700 mg 06/18/20 04:51 06/18/20 05:13 Lidoderm 5% TOP 06/18/20 04:52 700 mg ONETIME ONE Administration Oxycodone HCl 10 mg 06/18/20 04:48 06/18/20 05:13 Oxycodone PO 06/18/20 04:49 10 mg ONETIME ONE Administration Departure - Departure Time of Disposition: 06:03 Disposition: Home, Self-Care 01 Condition: Good Clinical Impression: Right-sided chest wall pain Chest pain Qualifiers: Chest pain type: other chest pain Qualified Code(s): R07.89 - Other chest pain Referrals: Patrice Yadav MD [Primary Care Provider] - 3 Days (For reevaluation of symptoms.) Forms: ED Department Discharge Additional Instructions: You were seen in the emergency department for right-sided chest wall pain. At this point your CT scan, x-rays, EKG, and blood work all look reassuring. I see no evidence of a heart attack and I am not suspicious for a blood clot in the lung. I am suspicious that you may be developing shingles, rash that can show up on 1 side of the body. You should monitor your skin for the next several days and if you develop a red rash, I recommend you be reevaluated by your primary care doctor to see if they want to start you on antiviral medication for shingles. I recommend [id number] extra strength acetaminophen (1000 mg every 6 hours) and ibuprofen (400 mg every 6 hours) to help treat your pain. I also recommend a heating pad and [id number] lidocaine patches. Warning signs to come back to the ER include: Worsening chest pain, shortness of breath, or any other new or concerning symptoms. Please return the emergency department immediately if your symptoms worsen or if you feel worse. Thank you for choosing the [facility] emergency department in [place] for your medical needs today. It was a pleasure caring for you. The following information is given to patients seen in the emergency department who are being discharged. This information is to outline your options for follow-up care. We provide all patients seen in our emergency department with a follow-up referral. The need for follow-up, as well as the timing and circumstances, are variable depending upon the specifics of your emergency department visit. If you don't have a primary care physician on staff, we will provide you with a referral. We always advise you to contact your personal physician following an emergency department visit to inform them of the circumstance of the visit and for follow-up with them and/or the need for any referrals to a consulting specialist. The emergency department will also refer you to a specialist when appropriate. This referral assures that you have the opportunity for follow-up care with a specialist. All of these measure are taken in an effort to provide you with optimal care, which includes your follow-up. Under all circumstances we always encourage you to contact your private physician who remains a resource for coordinating your care. When calling for follow-up care, please make the office aware that this follow-up is from your recent emergency room visit. If for any reason you are refused follow-up, please contact the [facility] Emergency Department at and asked to speak to the emergency department charge nurse. If you do not have a primary care physician that is caring for you, you can contact these clinics below to set up an appointment to establish care: [facility] - Primary Care [address] [place] [address] [place] [address] Sepsis Event Note (ED) - Focused Exam Vital Signs: Vital Signs Temp Pulse Resp BP Pulse Ox 06/18/20 06:00 67 18 125/66 97 06/18/20 04:30 36.1 C 80 18 148/85 H 99 - My Orders Last 24 Hours: My Active Orders 06/18/20 04:21 EKG 12 Lead [EKG Documentation Completion] [RC] STAT 06/18/20 04:45 Cardiac Monitoring [RC] . DIRECTED Pulse Oximetry [RC] ASDIRECTED - Assessment/Plan Last 24 Hours: My Active Orders 06/18/20 04:21 EKG 12 Lead [EKG Documentation Completion] [RC] STAT 06/18/20 04:45 Cardiac Monitoring [RC] . DIRECTED Pulse Oximetry [RC] ASDIRECTED
[2020-06-18] MEDS ORDERED: Acetaminophen 500 MG Tab PO ONE (04:48)
[2020-06-18] MEDS ORDERED: oxyCODONE 5 MG Tab PO ONE (04:48)
[2020-06-18] MEDS ORDERED: Lidocaine 5% 700 MG Patch TOP ONE (04:51)
[2020-06-18 05:21] LABS: BLOOD UREA NITROGEN,BUN 16 mg/dL (7.0-18.0); CARBON DIOXIDE,CO2 26.7 mmol/L (21.0-32.0); CHLORIDE,CL 102 mmol/L (98-107); GLUCOSE RANDOM 183 mg/dL (74-106); POTASSIUM,K 4.4 mmol/L (3.5-5.1); SODIUM,NA 138 mmol/L (136-148)
--- NOTE | 2020-06-18 05:33 | CR ---
INDICATION: Right-sided chest pain COMPARISON: 11/08/2019 FINDINGS: PA and lateral views of the chest were obtained. There is no change in mild prominence of interstitial markings consistent with mild pulmonary fibrosis. The previously seen mild nodularity seen in the left lateral mid lung is no longer present, consistent with resolution of inflammatory disease. The heart remains normal in size. The mediastinum is normal in appearance. The osseous structures are normal in appearance for the patient`s age. IMPRESSION: No active disease seen in the chest. Stable mild interstitial pulmonary fibrosis. Resolution of previously seen mild left lateral midlung infiltrate. Dictated by Arun Cruz MD @ Jun 18 2020 5:29AM Signed by Dr. Arun Cruz @ Jun 18 2020 5:32AM
[2020-06-18] MEDS ORDERED: Iopamidol 755 MG/ML 500 ML Multipack Bottle IVPUSH STA (05:59)
[2020-06-18 06:06] VITALS: BP 125/66; PULSE 67
--- NOTE | 2020-06-18 06:14 | CT ---
INDICATION: History an abscess of the right breast which was treated in 2019 now with recurrent pain with question of recurrent abscess COMPARISON: May 08, 2019 TECHNIQUE: : CT examination of the chest was performed with the uneventful intravenous administration of 75 cc of Isovue 370 while thin axial sections were obtained from above the apices of the lungs to the lung bases. Please note that all CT scans at this facility use dose modulation, iterative reconstruction, and/or weight-based dosing when appropriate to reduce radiation dose to as low as reasonably achievable. FINDINGS: : HEART and MEDIASTINUM: The heart size is normal. There is no mediastinal or hilar adenopathy or mass. There is no pericardial effusion.Atherosclerotic vascular calcification LUNGS: Moderate upper lobe predominant emphysema, paraseptal and central lobular variant. Similar appearance to the prior study PLEURAL SPACES: There is no pleural effusion, pneumothorax or pleural based mass. VISUALIZED UPPER ABDOMEN: Chronic calcific pancreatitis. Very last image shows a stone in the renal pelvis. This stone was present in the renal pelvis on 2019 study there is perinephric stranding bilaterally and this is unchanged. OSSEOUS STRUCTURES: Demineralization and degenerative change. No acute fracture or destructive process TUBES and LINES: None. CHEST WALL: There is gynecomastia. A surgical clip is noted in the right breast probably from prior incision and drainage. This was present previously. Soft tissue induration medial to and posterior to the right nipple. This measures about 1.5 centimeters. It is difficult to say whether this represents an abscess though it does not clearly have a low-density center and an enhancing wall. Sonography is advised for further evaluation and to ensure that this is an inflammatory focus IMPRESSION: 1. Gynecomastia. Surgical clip associated with the right breast probably related to prior incision and drainage. This clip was present previously. Abnormal soft tissue medial to and posterior to the right nipple measuring 1.5 centimeters could be inflammatory though it is difficult to say with certainty whether it is an abscess or a mass. Correlation with diagnostic imaging of the breast to begin with sonography is advised. 2. Significant emphysema. This is unchanged. 3. Chronic calcific pancreatitis and right-sided nephrolithiasis. 4. Discussed with Dr. Collins at 6:10 a.m. on August 19, [address] all [address] scans at this facility use dose modulation, iterative reconstruction, and/or weight-based dosing when appropriate to reduce radiation dose to as low as reasonably achievable. Dictated by Venu Cohen MD @ Jun 18 2020 6:02AM Signed by Dr. Venu Cohen @ Jun 18 2020 6:13AM
== END 2020-06-18 06:35 | disposition home or self-care (01) ==
LOC: MW.ED 04:20
DX: R07.89 Other chest pain (principal); I10 Essential (primary) hypertension; I25.10 Atherosclerotic heart disease of native coronary artery without angina pectoris; M19.90 Unspecified osteoarthritis, unspecified site; E11.9 Type 2 diabetes mellitus without complications; F17.210 Nicotine dependence, cigarettes, uncomplicated; I45.10 Unspecified right bundle-branch block; Z91.048 Other nonmedicinal substance allergy status; Z88.4 Allergy status to anesthetic agent; Z79.4 Long term (current) use of insulin; Z79.82 Long term (current) use of aspirin; Z79.02 Long term (current) use of antithrombotics/antiplatelets; Z79.899 Other long term (current) drug therapy
CPT/HCPCS: 36415; 71046; 71260; 80053; 84484; 85025; 93005; 99284; A9270; Q9967; 93010; 99283

== ENCOUNTER 2020-12-10 22:36 | Observation (INO) | payer MEDICARE, OTHER ==
--- NOTE | 2020-12-10 23:13 | EDM.PDOC ---
ED HPI GENERAL MEDICAL PROBLEM - General Chief Complaint: Back Pain or Injury Stated Complaint: RIGHT LOWER BACK PAIN, SIDE PAIN,PAIN IN TESTICLE Time Seen by Provider: 12/10/20 23:13 Source of Information: Reports: Patient History Limitations: Reports: No Limitations - History of Present Illness INITIAL COMMENTS - FREE TEXT/NARRATIVE: Patient is a 70-year-old male presents today for right lower quadrant pain. Patient said pain started earlier today has been radiating to his right groin as well. Patient denies any urinary symptoms and states he is urinating fine. Patient does report some nausea but no vomiting. Patient denies any fever chills or other complaints. right side, groin Pain Score (Numeric/FACES): 6 - Related Data Allergies Allergy/AdvReac Type Severity Reaction Status Date / Time midazolam HCl [From Versed] Allergy Severe Change Verified 12/10/20 23:05 Mental Status mercury (elemental) Allergy Rash Verified 12/10/20 23:05 Home Meds: Home Meds Insulin Glarg,Human.Rec.Analog [LantUS Solostar] 30 units SUBCUT BEDTIME 03/25/17 [History] Aspirin 1 tab PO DAILY 06/18/20 [History] Clopidogrel [Plavix] 75 mg PO DAILY 06/18/20 [History] Insulin Aspart [NovoLOG] 1 injection INJECT ASDIRECTED 06/18/20 [History] Rosuvastatin [Crestor] 10 mg PO DAILY 12/10/20 [History] Past Medical History HEENT History: Reports: Other (See Below) Other HEENT History: wears glasses, has upper partial removable denture Cardiovascular History: Reports: CAD, Hypertension, ND Other Cardiovascular History: previoiusly took medication for hypertention- stopped a "few months" ago because of hypotention Respiratory History: Reports: None Other Respiratory History: 55 yr history of smoking, current use 1 pack per day Gastrointestinal History: Reports: Diverticulosis Other Gastrointestinal History: hx: Pancreatic surgery Genitourinary History: Reports: Renal Calculus Other Genitourinary History: passed kidney stone 4 months ago Musculoskeletal History: Reports: Fracture, Osteoarthritis Other Musculoskeletal History: hx of fx wrist Neurological History: Reports: Concussion, Head Trauma Psychiatric History: Reports: None Endocrine/Metabolic History: Reports: IDDM Insulin Pump Model and Salon Shampoo Assistant: None Hematologic History: Reports: None Immunologic History: Reports: None Oncologic (Cancer) History: Reports: None Dermatologic History: Reports: None - Infectious Disease History Infectious Disease History: Reports: Chicken Pox - Past Surgical History Head Surgeries/Procedures: Reports: None HEENT Surgical History: Reports: None Cardiovascular Surgical History: Reports: None Respiratory Surgical History: Reports: None GI Surgical History: Reports: Other (See Below) Other GI Surgeries/Procedures: repair of traumatic injury to pancreas (pancreatic resection) Neurological Surgical History: Reports: None Musculoskeletal Surgical History: Reports: None Other Musculoskeletal Surgeries/Procedures:: excision of infected right breast mass a few weeks ago, has been draining and has been on antibiotics recently Oncologic Surgical History: Reports: Other (See Below) Social & Family History - Family History Family Medical History: No Pertinent Family History - Tobacco Use Packs/Tins Daily: 1 - Caffeine Use Caffeine Use: Reports: None - Recreational Drug Use Recreational Drug Use: No ED ROS GENERAL - Review of Systems Review Of Systems: See Below Constitutional: Reports: No Symptoms HEENT: Reports: No Symptoms Respiratory: Reports: No Symptoms Cardiovascular: Reports: No Symptoms Endocrine: Reports: No Symptoms GI/Abdominal: Reports: Abdominal Pain, Nausea : Reports: No Symptoms Musculoskeletal: Reports: No Symptoms Skin: Reports: No Symptoms Neurological: Reports: No Symptoms Psychiatric: Reports: No Symptoms Hematologic/Lymphatic: Reports: No Symptoms Immunologic: Reports: No Symptoms ED EXAM, GI/ABD - Physical Exam Exam: See Below Exam Limited By: No Limitations General Appearance: Alert, WD/WN, No Apparent Distress Respiratory/Chest: No Respiratory Distress, Lungs Clear, Normal Breath Sounds Cardiovascular: Normal Peripheral Pulses, Regular Rate, Rhythm GI/Abdominal Exam: Normal Bowel Sounds, Soft, Non-Tender (Male) Exam: No Hernia, Normal Inspection Back Exam: Normal Inspection Extremities: Normal Inspection, Normal Range of Motion Neurological: Alert, Oriented, CN II-XII Intact, Normal Cognition, Normal Gait Course - Vital Signs Last Recorded V/S: Last Vital Signs Temp 97.8 F 12/10/20 23:00 Pulse 63 12/11/20 02:01 Resp 16 12/11/20 02:01 BP 134/64 12/11/20 02:01 Pulse Ox 97 12/11/20 02:01 - Orders/Labs/Meds Orders: Active Orders 24 hr Category Date Time Status Patient Status [ADT] Routine ADT 12/11/20 02:18 Ordered CORONAVIRUS COVID-19 ABDULAZIZ [MOLEC] Stat Lab 12/11/20 02:05 Ordered Labs: Laboratory Tests 12/10/20 12/10/20 12/11/20 Range/Units 23:25 23:25 00:40 WBC 14.08 H (4.0-11.0) K/uL RBC 5.40 (4.50-5.90) M/uL Hgb 16.7 (13.0-17.0) g/dL Hct 48.6 (38.0-50.0) % MCV 90.0 (80.0-98.0) fL MCH 30.9 (27.0-32.0) pg MCHC 34.4 (31.0-37.0) g/dL RDW Std Deviation 43.6 (28.0-62.0) fl RDW Coeff of Fahad 13 (11.0-15.0) % Plt Count 174 (150-400) K/uL MPV 11.30 (7.40-12.00) fL Neut % (Auto) 79.2 (48.0-80.0) % Lymph % (Auto) 9.4 L (16.0-40.0) % [place] % (Auto) 10.5 (0.0-15.0) % Eos % (Auto) 0.8 (0.0-7.0) % Baso % (Auto) 0.1 (0.0-1.5) % Neut # (Auto) 11.1 H (1.4-5.7) K/uL Lymph # (Auto) 1.3 (0.6-2.4) K/uL [place] # (Auto) 1.5 H (0.0-0.8) K/uL Eos # (Auto) 0.1 (0.0-0.7) K/uL Baso # (Auto) 0.0 (0.0-0.1) K/uL Nucleated RBC % 0.0 /100WBC Nucleated RBCs # 0 K/uL Sodium 137 (136-148) mmol/L Potassium 4.1 (3.5-5.1) mmol/L Chloride 101 (98-107) mmol/L Carbon Dioxide 22.5 (21.0-32.0) mmol/L BUN 23 H (7.0-18.0) mg/dL Creatinine 1.4 H (0.8-1.3) mg/dL Est Cr Clr Drug Dosing 46.33 mL/min Estimated GFR (MDRD) 50.2 ml/min Glucose 191 H (74-106) mg/dL Calcium 8.8 (8.5-10.1) mg/dL Phosphorus 4.6 (2.6-4.7) mg/dL Magnesium 1.9 (1.8-2.4) mg/dL Total Bilirubin 0.6 (0.2-1.0) mg/dL AST 22 (15-37) IU/L ALT 63 (14-63) IU/L Alkaline Phosphatase 90 (46-116) U/L Total Protein 7.2 (6.4-8.2) g/dL Albumin 3.6 (3.4-5.0) g/dL Globulin 3.6 (2.6-4.0) g/dL Albumin/Globulin Ratio 1.0 (0.9-1.6) Lipase 13 L (73-393) U/L Urine Color YELLOW Urine Appearance SLT CLOUDY Urine pH 5.0 (5.0-8.0) Ur Specific [place] 1.020 (1.001-1.035) Urine Protein TRACE H (NEGATIVE) mg/dL Urine Glucose (UA) >=1000 (NEGATIVE) mg/dL Urine Ketones 15 H (NEGATIVE) mg/dL Urine Occult Blood LARGE H (NEGATIVE) Urine Nitrite NEGATIVE (NEGATIVE) Urine Bilirubin NEGATIVE (NEGATIVE) Urine Urobilinogen 0.2 (<2.0) EU/dL Ur Leukocyte Esterase NEGATIVE (NEGATIVE) Urine RBC 10-15 (0-2/HPF) Urine WBC 4-8 (0-5/HPF) Ur Epithelial Cells FEW (NONE-FEW) Calcium Oxalate Crystal MODERATE (NEGATIVE) Urine Bacteria FEW (NEGATIVE) Meds: Medications Discontinued Medications Generic Name Dose Route Start Last Admin Trade Name Freq PRN Reason Stop Dose Admin Iopamidol 100 ml 12/11/20 00:42 12/11/20 00:43 Iopamidol 755 Mg/Ml 500 Ml Multipack Bottle IVPUSH 12/11/20 00:43 100 ml ONETIME STA Administration Ketorolac Tromethamine Confirm 12/10/20 23:32 12/10/20 23:35 Ketorolac 30 Mg/Ml Sdv Administered 12/10/20 23:33 Not Given Dose 30 mg .ROUTE .STK-MED ONE Ketorolac Tromethamine 30 mg 12/10/20 23:34 12/10/20 23:35 Ketorolac 30 Mg/Ml Sdv IVPUSH 12/10/20 23:35 30 mg ONETIME ONE Administration Ondansetron HCl Confirm 12/10/20 23:32 12/10/20 23:35 Ondansetron 4 Mg/2 Ml Sdv Administered 12/10/20 23:33 Not Given Dose 4 mg .ROUTE .STK-MED ONE Ondansetron HCl 4 mg 12/10/20 23:33 12/10/20 23:34 Ondansetron 4 Mg/2 Ml Sdv IVPUSH 12/10/20 23:34 4 mg ONETIME ONE Administration Departure - Departure Time of Disposition: 02:19 Disposition: Refer to Observation Condition: Good Clinical Impression: Kidney stone on right side - Discharge Information *PRESCRIPTION DRUG MONITORING PROGRAM REVIEWED*: Not Applicable *COPY OF PRESCRIPTION DRUG MONITORING REPORT IN PATIENT MICHAELA: Not Applicable Instructions: Kidney Stones Referrals: PCP,None [Primary Care Provider] - Forms: ED Department Discharge Sepsis Event Note (ED) - Evaluation Sepsis Screening Result: No Definite Risk - Focused Exam Vital Signs: Vital Signs Temp Pulse Resp BP Pulse Ox 12/11/20 02:01 63 16 134/64 97 12/10/20 23:00 97.8 F 68 16 176/83 H 96 - My Orders Last 24 Hours: My Active Orders 12/11/20 02:05 CORONAVIRUS COVID-19 ABDULAZIZ [MOLEC] Stat 12/11/20 02:18 Patient Status [ADT] Routine - Assessment/Plan Last 24 Hours: My Active Orders 12/11/20 02:05 CORONAVIRUS COVID-19 ABDULAZIZ [MOLEC] Stat 12/11/20 02:18 Patient Status [ADT] Routine Plan: Patient is a 70-year-old male presents today for abdominal pain right lower quadrant. Will rule out appendicitis possible stone. Obtain UA CT scan and reassess. Patient also given pain control.
[2020-12-10] MEDS ORDERED: Ondansetron 4 MG/2 ML SDV ONE (23:32)
[2020-12-10] MEDS ORDERED: Ketorolac 30 MG/ML SDV ONE (23:32)
[2020-12-10] MEDS ORDERED: Ondansetron 4 MG/2 ML SDV IVPUSH ONE (23:33)
[2020-12-10] MEDS ORDERED: Ketorolac 30 MG/ML SDV IVPUSH ONE (23:34)
[2020-12-10 23:51] LABS: CARBON DIOXIDE,CO2 22.5 mmol/L (21.0-32.0); POTASSIUM,K 4.1 mmol/L (3.5-5.1)
[2020-12-11] MEDS ORDERED: Iopamidol 755 MG/ML 500 ML Multipack Bottle IVPUSH STA (00:42)
--- NOTE | 2020-12-11 01:58 | CT ---
INDICATION: Right lower quadrant pain TECHNIQUE: Axial images were obtained from the diaphragm to the pubic symphysis. Reformats were obtained in the coronal and sagittal plane. IV Contrast: 100 cc Isovue 370 Oral Contrast: None COMPARISON: Abdomen and pelvis CT 04/16/2018 FINDINGS: Lower chest: Basilar discoid atelectasis. Liver: Unremarkable. Normal in size and attenuation. No masses. Gallbladder and bile ducts: Unremarkable. No stones or inflammation. No biliary dilatation. Spleen: Unremarkable. Normal in size without mass. Pancreas: Prominent calcifications in the pancreas consistent with chronic pancreatitis. Moderate pancreatic atrophy. Adrenal glands: Unremarkable. No nodules. Kidneys: Delayed nephrogram on the right with moderate right pelvicaliectasis and obstructing right ureteropelvic junction stone measuring 2.0 x 1.7 centimeters. Vasculature: Atherosclerosis without abdominal aortic aneurysm. GI tract: The stomach is unremarkable mildly prominent loop of small bowel within the left abdomen with the suture line, likely postsurgical. Large amount of stool within the colon. Pelvis: Moderate prostatic enlargement. Bones: Old T12 compression fracture. IMPRESSION: 1. Nephrolithiasis with moderate right hydronephrosis and obstructing right ureteropelvic junction stone measuring 2.0 x 1.7 centimeters. 2. Chronic pancreatitis. Please note that all CT scans at this facility use dose modulation, iterative reconstruction, and/or weight-based dosing when appropriate to reduce radiation dose to as low as reasonably achievable. Dictated by Ibrahima Rico MD @ 12/11/2020 1:58:[address] Ibrahima Rico @ Dec 11 2020 1:58AM
[2020-12-11] MEDS ORDERED: cefTRIAXone 1 GM Vial IVPUSH ONE (02:19)
[2020-12-11] MEDS ORDERED: Sodium Chloride 0.9% 1,000 ML IV ONE (02:20)
[2020-12-11] MEDS ORDERED: Albuterol/Ipratropium 3.0-0.5 MG/3 ML Neb Soln NEB PRN (05:06)
[2020-12-11] MEDS ORDERED: Ondansetron 4 MG/2 ML SDV IVPUSH PRN (05:06)
[2020-12-11] MEDS ORDERED: Glucagon,Human Recombinant 1 MG Vial IM PRN ×2 (05:13→17:54)
[2020-12-11] MEDS ORDERED: 50% Dextrose in Water 50 ML Syringe IVPUSH PRN ×2 (05:13→17:54)
[2020-12-11] MEDS: Lactated Ringers 1,000 ML IV SCH ×2 (05:33→14:04)
[2020-12-11] MEDS: Morphine 2 MG/ML SYRINGE IVPUSH PRN ×2 (05:43→14:14)
[2020-12-11] MEDS: Insulin Aspart 100 Units/ML 3 ML Pen SUBCUT SCH ×3 (07:38→17:43)
[2020-12-11] MEDS ORDERED: Tamsulosin 0.4 MG Cap.ER PO SCH (08:30)
[2020-12-11] MEDS ORDERED: Pantoprazole 40 MG Vial IV SCH (09:00)
[2020-12-11] MEDS ORDERED: Pantoprazole 40 MG in Sodium Chloride 0.9% 10 ML IV SCH (09:00)
[2020-12-11] MEDS ORDERED: Rosuvastatin 10 MG Tab PO SCH (09:00)
--- NOTE | 2020-12-11 09:30 | PCM.HP.2 ---
H&P History of Present Illness - General Date of Service: 12/11/20 Admit Problem/Dx: Admission Diagnosis/Problem Admission Diagnosis/Problem Kidney stone - History of Present Illness Initial Comments - Free Text/Narative: Patient is a 70-year-old male with past medical history of CAD status post stenting in 2019, diabetes managed with insulin presents today for right lower quadrant pain as well as back pain. Patient said pain started earlier today and has been getting worse. Patient denies any chest pain, shortness of breath. Patient denies any urinary symptoms and states he is urinating fine. Patient d oes report some nausea but no vomiting. Patient denies any fever chills or other complaints. Labs in the ER were significant for leukocytosis of 14.08 and creatinine of 1.4. CT of the abdomen was positive for nephrolithiasis with moderate right hydronephrosis and obstructing right ureteropelvic junction stone measuring 2.0 X 1.7 cm. Patient states that he has had kidney stones in the past but he has passed them spontaneously without needing any intervention. Patient does not know the composition of the stone. Urine analysis showed some blood, ketones and protein. Patient was admitted to the hospital for further management. Dr. Pizarro was consulted and recommended admission to medicine with urology being on consult for further intervention. right side, groin Pain Score (Numeric/FACES): 5 - Related Data Allergies/Adverse Reactions: Allergies Allergy/AdvReac Type Severity Reaction Status Date / Time midazolam HCl [From Versed] Allergy Severe Change Verified 12/11/20 04:51 Mental Status mercury (elemental) Allergy Rash Verified 12/11/20 04:51 Home Medications: Home Meds Insulin Glarg,Human.Rec.Analog [LantUS Solostar] 30 units SUBCUT QAM 03/25/17 [History] Aspirin 1 tab PO DAILY 06/18/20 [History] Clopidogrel [Plavix] 75 mg PO DAILY 06/18/20 [History] Insulin Aspart [NovoLOG] 1 injection INJECT ASDIRECTED 06/18/20 [History] Rosuvastatin [Crestor] 5 mg PO DAILY 12/10/20 [History] Empagliflozin [Jardiance] 25 mg PO QAM 12/11/20 [History] Past Medical History HEENT History: Reports: Hard of Hearing, Other (See Below) Other HEENT History: wears glasses, has upper partial removable denture Cardiovascular History: Reports: CAD, High Cholesterol, Hypertension, [place] Other Cardiovascular History: previoiusly took medication for hypertension Respiratory History: Reports: None Other Respiratory History: 59 yr history of smoking, current use 1 pack per day Gastrointestinal History: Reports: Diverticulosis Other Gastrointestinal History: hx: Pancreatic surgery Genitourinary History: Reports: Renal Calculus Other Genitourinary History: Kidney stones about a year ago Musculoskeletal History: Reports: Fracture, Osteoarthritis Other Musculoskeletal History: hx of fx wrist Neurological History: Reports: Concussion, Head Trauma Psychiatric History: Reports: None Endocrine/Metabolic History: Reports: Diabetes, Type II Insulin Pump Model and Instrument Panel Assembler: None Hematologic History: Reports: None Immunologic History: Reports: None Oncologic (Cancer) History: Reports: None Dermatologic History: Reports: None - Infectious Disease History Infectious Disease History: Reports: Chicken Pox - Past Surgical History Head Surgeries/Procedures: Reports: None HEENT Surgical History: Reports: None Cardiovascular Surgical History: Reports: Coronary Artery Stent Respiratory Surgical History: Reports: None GI Surgical History: Reports: Other (See Below) Other GI Surgeries/Procedures: repair of traumatic injury to pancreas (pancreatic resection) Neurological Surgical History: Reports: None Musculoskeletal Surgical History: Reports: None Other Musculoskeletal Surgeries/Procedures:: Hx of excision of infected right breast mass Oncologic Surgical History: Reports: Other (See Below) Social & Family History - Family History Family Medical History: No Pertinent Family History - Tobacco Use Tobacco Use Status *Q: Current Every Day Tobacco User Years of Tobacco use: 60 Packs/Tins Daily: 1 Used Tobacco, but Quit: No Second Hand Smoke Exposure: Yes - Caffeine Use Caffeine Use: Reports: Coffee - Recreational Drug Use Recreational Drug Use: Yes Drug Use in Last 12 Months: No Recreational Drug Type: Reports: Marijuana/Hashish H&P Review of Systems - Review of Systems: Review Of Systems: See Below General: Denies: Fever, Chills, Malaise HEENT: Denies: Contact Lenses Pulmonary: Denies: Shortness of Breath, Wheezing, Pleuritic Chest Pain Gastrointestinal: Reports: Abdominal Pain, Anorexia, Decreased Appetite, Nausea. Denies: Black Stool, Bloody Stool, Constipation, Diarrhea, Hematochezia, Melena, Mucous in Stool, Stool Incontinence, Vomiting Genitourinary: Denies: Dysuria, Frequency, Burning Musculoskeletal: Denies: Shoulder Pain, Arm Pain, Back Pain Skin: Denies: Jaundice, Mottled, Pallor Psychiatric: Denies: Depression, Mood Lability, Anxiety Neurological: Denies: Dizziness, Headache, Numbness Hematologic/Lymphatic: Denies: Easy Bleeding, Easy Bruising, Swollen Glands Exam - Exam Exam: See Below - Vital Signs Vital Signs: Last Vital Signs Temp 37 C 12/11/20 07:26 Pulse 63 12/11/20 07:26 Resp 14 12/11/20 07:26 BP 137/67 12/11/20 07:26 Pulse Ox 96 12/11/20 07:26 Weight: 73.074 kg - Exam General: Alert, Oriented Neck: Supple Lungs: Clear to Auscultation, Normal Respiratory Effort Cardiovascular: Regular Rate, Regular Rhythm GI/Abdominal Exam: Normal Bowel Sounds, Soft, Guarding, Tender. No: Rigid, Rebound Back Exam: Normal Inspection, Full Range of Motion Extremities: Normal Inspection, Normal Range of Motion, Non-Tender - Patient Data Lab Results Last 24 hrs: Laboratory Results - last 24 hr 12/10/20 12/10/20 12/11/20 Range/Units 23:25 23:25 00:40 WBC 14.08 H (4.0-11.0) K/uL RBC 5.40 (4.50-5.90) M/uL Hgb 16.7 (13.0-17.0) g/dL Hct 48.6 (38.0-50.0) % MCV 90.0 (80.0-98.0) fL MCH 30.9 (27.0-32.0) pg MCHC 34.4 (31.0-37.0) g/dL RDW Std Deviation 43.6 (28.0-62.0) fl RDW Coeff of Fahad 13 (11.0-15.0) % Plt Count 174 (150-400) K/uL MPV 11.30 (7.40-12.00) fL Neut % (Auto) 79.2 (48.0-80.0) % Lymph % (Auto) 9.4 L (16.0-40.0) % [place] % (Auto) 10.5 (0.0-15.0) % Eos % (Auto) 0.8 (0.0-7.0) % Baso % (Auto) 0.1 (0.0-1.5) % Neut # (Auto) 11.1 H (1.4-5.7) K/uL Lymph # (Auto) 1.3 (0.6-2.4) K/uL [place] # (Auto) 1.5 H (0.0-0.8) K/uL Eos # (Auto) 0.1 (0.0-0.7) K/uL Baso # (Auto) 0.0 (0.0-0.1) K/uL Nucleated RBC % 0.0 /100WBC Nucleated RBCs # 0 K/uL Sodium 137 (136-148) mmol/L Potassium 4.1 (3.5-5.1) mmol/L Chloride 101 (98-107) mmol/L Carbon Dioxide 22.5 (21.0-32.0) mmol/L BUN 23 H (7.0-18.0) mg/dL Creatinine 1.4 H (0.8-1.3) mg/dL Est Cr Clr Drug Dosing 46.33 mL/min Estimated GFR (MDRD) 50.2 ml/min Glucose 191 H (74-106) mg/dL POC Glucose (70-99) mg/dL Calcium 8.8 (8.5-10.1) mg/dL Phosphorus 4.6 (2.6-4.7) mg/dL Magnesium 1.9 (1.8-2.4) mg/dL Total Bilirubin 0.6 (0.2-1.0) mg/dL AST 22 (15-37) IU/L ALT 63 (14-63) IU/L Alkaline Phosphatase 90 (46-116) U/L Total Protein 7.2 (6.4-8.2) g/dL Albumin 3.6 (3.4-5.0) g/dL Globulin 3.6 (2.6-4.0) g/dL Albumin/Globulin Ratio 1.0 (0.9-1.6) Lipase 13 L (73-393) U/L Urine Color YELLOW Urine Appearance SLT CLOUDY Urine pH 5.0 (5.0-8.0) Ur Specific [place] 1.020 (1.001-1.035) Urine Protein TRACE H (NEGATIVE) mg/dL Urine Glucose (UA) >=1000 (NEGATIVE) mg/dL Urine Ketones 15 H (NEGATIVE) mg/dL Urine Occult Blood LARGE H (NEGATIVE) Urine Nitrite NEGATIVE (NEGATIVE) Urine Bilirubin NEGATIVE (NEGATIVE) Urine Urobilinogen 0.2 (<2.0) EU/dL Ur Leukocyte Esterase NEGATIVE (NEGATIVE) Urine RBC 10-15 (0-2/HPF) Urine WBC 4-8 (0-5/HPF) Ur Epithelial Cells FEW (NONE-FEW) Calcium Oxalate Crystal MODERATE (NEGATIVE) Urine Bacteria FEW (NEGATIVE) SARS-CoV-2 RNA (ABDULAZIZ) (NEGATIVE) 12/11/20 12/11/20 Range/Units 02:15 05:30 WBC (4.0-11.0) K/uL RBC (4.50-5.90) M/uL Hgb (13.0-17.0) g/dL Hct (38.0-50.0) % MCV (80.0-98.0) fL MCH (27.0-32.0) pg MCHC (31.0-37.0) g/dL RDW Std Deviation (28.0-62.0) fl RDW Coeff of Fahad (11.0-15.0) % Plt Count (150-400) K/uL MPV (7.40-12.00) fL Neut % (Auto) (48.0-80.0) % Lymph % (Auto) (16.0-40.0) % [place] % (Auto) (0.0-15.0) % Eos % (Auto) (0.0-7.0) % Baso % (Auto) (0.0-1.5) % Neut # (Auto) (1.4-5.7) K/uL Lymph # (Auto) (0.6-2.4) K/uL [place] # (Auto) (0.0-0.8) K/uL Eos # (Auto) (0.0-0.7) K/uL Baso # (Auto) (0.0-0.1) K/uL Nucleated RBC % /100WBC Nucleated RBCs # K/uL Sodium (136-148) mmol/L Potassium (3.5-5.1) mmol/L Chloride (98-107) mmol/L Carbon Dioxide (21.0-32.0) mmol/L BUN (7.0-18.0) mg/dL Creatinine (0.8-1.3) mg/dL Est Cr Clr Drug Dosing mL/min Estimated GFR (MDRD) ml/min Glucose (74-106) mg/dL POC Glucose 254 H (70-99) mg/dL Calcium (8.5-10.1) mg/dL Phosphorus (2.6-4.7) mg/dL Magnesium (1.8-2.4) mg/dL Total Bilirubin (0.2-1.0) mg/dL AST (15-37) IU/L ALT (14-63) IU/L Alkaline Phosphatase (46-116) U/L Total Protein (6.4-8.2) g/dL Albumin (3.4-5.0) g/dL Globulin (2.6-4.0) g/dL Albumin/Globulin Ratio (0.9-1.6) Lipase (73-393) U/L Urine Color Urine Appearance Urine pH (5.0-8.0) Ur Specific [place] (1.001-1.035) Urine Protein (NEGATIVE) mg/dL Urine Glucose (UA) (NEGATIVE) mg/dL Urine Ketones (NEGATIVE) mg/dL Urine Occult Blood (NEGATIVE) Urine Nitrite (NEGATIVE) Urine Bilirubin (NEGATIVE) Urine Urobilinogen (<2.0) EU/dL Ur Leukocyte Esterase (NEGATIVE) Urine RBC (0-2/HPF) Urine WBC (0-5/HPF) Ur Epithelial Cells (NONE-FEW) Calcium Oxalate Crystal (NEGATIVE) Urine Bacteria (NEGATIVE) SARS-CoV-2 RNA (ABDULAZIZ) NEGATIVE (NEGATIVE) Result Diagrams: 12/11/20 10:32 12/11/20 10:32 Sepsis Event Note - Evaluation Sepsis Screening Result: No Definite Risk - Focused Exam Vital Signs: Vital Signs Temp Pulse Resp BP Pulse Ox 12/11/20 07:26 37 C 63 14 137/67 96 12/11/20 04:14 36.4 C 70 16 159/70 H 96 12/11/20 03:49 68 16 132/62 96 12/11/20 03:02 61 16 138/64 98 12/11/20 02:01 63 16 134/64 97 12/10/20 23:00 36.6 C 68 16 176/83 H 96 Problem List Initiated/Reviewed/Updated: Yes Orders Last 24hrs: Active Orders 24 hr Category Date Time Status Patient Status [ADT] Routine ADT 12/11/20 02:18 Active Ambulate [RC] ASDIRECTED Care 12/11/20 05:06 Active Antiembolic Devices [RC] PER UNIT ROUTINE Care 12/11/20 05:07 Active Notify Provider Consults [RC] ASDIRECTED Care 12/11/20 05:10 Active Oxygen Therapy [RC] PRN Care 12/11/20 05:06 Active Pulse Oximetry [RC] PRN Care 12/11/20 05:06 Active RT Aerosol Therapy [RC] ASDIRECTED Care 12/11/20 05:08 Active Strain Urine [RC] ASDIRECTED Care 12/11/20 05:11 Active VTE/DVT Education [RC] PER UNIT ROUTINE Care 12/11/20 05:06 Active Vital Signs [RC] Q4H Care 12/11/20 05:06 Active Consult to Physician [CONS] Stat Cons 12/11/20 05:10 Active Nothing per Oral Now Diet [DIET] Diet 12/11/20 Breakfast Active Albuterol/Ipratropium [DuoNeb 3.0-0.5 MG/3 ML] Med 12/11/20 05:06 Active 3 ml NEB Q4HRRT PRN Aspirin Med 12/12/20 09:00 Active 81 mg PO DAILY Dextrose 50% in Water Med 12/11/20 05:13 Active 50 ml IVPUSH ASDIRECTED PRN Glucagon,Human Recombinant [GlucaGen] Med 12/11/20 05:13 Active 1 mg IM ASDIRECTED PRN Insulin Aspart [NovoLOG] Med 12/11/20 05:15 Active See Protocol SUBCUT Q6H Lactated Ringers [Ringers, Lactated] 1,000 ml Med 12/11/20 05:15 Active IV ASDIRECTED Morphine Med 12/11/20 05:06 Active 2 mg IVPUSH Q3H PRN Ondansetron [Zofran] Med 12/11/20 05:06 Active 4 mg IVPUSH Q4H PRN Pantoprazole [ProTONIX IV] 40 mg Med 12/11/20 09:00 Active Sodium Chloride 0.9% [Normal Saline] 10 ml IV DAILY Rosuvastatin [Crestor] Med 12/11/20 09:00 Active 10 mg PO DAILY Tamsulosin [Flomax] Med 12/11/20 08:30 Active 0.4 mg PO PCBREAKFAST cefTRIAXone [Rocephin in Dextrose,Iso-Osm 1 GM/50 ML] 1 Med 12/12/20 02:00 Active gm Premix Bag 1 bag IV Q24H Sequential Compression Device [OM.PC] Per Unit Routine Oth 12/11/20 05:06 Ordered Medication Orders Albuterol/Ipratropium (Albuterol/Ipratropium 3.0-0.5 Mg/3 Ml Neb Soln) 3 ml NEB Q4HRRT PRN PRN Reason: Shortness Of Breath/wheezing Aspirin (Aspirin 81 Mg Tab.Chew) 81 mg PO DAILY [facility] Dextrose/Water (50% Dextrose In Water 50 Ml Syringe) 50 ml IVPUSH ASDIRECTED PRN PRN Reason: Hypoglycemia Glucagon (Glucagon,Human Recombinant 1 Mg Vial) 1 mg IM ASDIRECTED PRN PRN Reason: Hypoglycemia Lactated Ringer's (Ringers, Lactated) 1,000 mls @ 125 mls/hr IV ASDIRECTED ROSENDO Last Admin: 12/11/20 05:33 Dose: 125 mls/hr Documented by: ZULMA Pantoprazole Sodium 40 mg/ (Sodium Chloride) 10 mls @ 200 mls/hr IV DAILY [facility] Last Admin: 12/11/20 08:29 Dose: 200 mls/hr Documented by: CHACHA Ceftriaxone Sodium/Dextrose 1 (gm/ Premix) 50 mls @ 100 mls/hr IV Q24H [facility] Insulin Aspart (Insulin Aspart 100 Units/Ml 3 Ml Pen) 0 unit SUBCUT Q6H [facility]; Protocol Last Admin: 12/11/20 07:38 Dose: Not Given Documented by: ZULMA Morphine Sulfate (Morphine 2 Mg/Ml Syringe) 2 mg IVPUSH Q3H PRN PRN Reason: Pain (severe 7-10) Stop: 12/12/20 05:07 Last Admin: 12/11/20 05:43 Dose: 2 mg Documented by: ZULMA Ondansetron HCl (Ondansetron 4 Mg/2 Ml Sdv) 4 mg IVPUSH Q4H PRN PRN Reason: Nausea/Vomiting Rosuvastatin Calcium (Rosuvastatin 10 Mg Tab) 10 mg PO DAILY [facility] Last Admin: 12/11/20 08:31 Dose: 10 mg Documented by: CHACHA Tamsulosin HCl (Tamsulosin 0.4 Mg Cap.Er) 0.4 mg PO PCBREAKFAST ROSENDO Last Admin: 12/11/20 08:31 Dose: 0.4 mg Documented by: [id number] Assessment/Plan Comment:: 70-year-old male admitted for moderate right hydronephrosis and obstructing right ureteropelvic junction stone Patient has been started on IV Rocephin secondary to leukocytosis, will continue Rocephin Continue hydration with lactated Ringer's We will keep patient n.p.o. for now for possible surgical intervention later Patient is diabetic we will start on sliding scale insulin and every 6 hours Accu-Cheks May need to start patient on dextrose LR if glucose drops drop IV morphine for pain control SCDs for DVT prophylaxis Continue aspirin we will hold off Plavix for now for possible surgical intervention, will resume in the morning Continue to monitor vitals closely Monitor and replete electrolytes as necessary Continue home meds as appropriate Dispo: 1 to 2 days depending upon patient's course after surgical intervention
[2020-12-11 11:09] LABS: CARBON DIOXIDE,CO2 22.4 mmol/L (21.0-32.0); POTASSIUM,K 4.5 mmol/L (3.5-5.1)
[2020-12-11] MEDS ORDERED: Propofol 200 MG/20 ML SDV ONE ×2 (16:38→16:40)
[2020-12-11] MEDS ORDERED: fentaNYL 100 MCG/2 ML SDV ONE (16:38)
[2020-12-11] MEDS ORDERED: Ondansetron 4 MG/2 ML SDV ONE (16:39)
[2020-12-11] MEDS ORDERED: Lidocaine 2% 5 ML SDV ONE (16:39)
[2020-12-11] MEDS ORDERED: Ketorolac 30 MG/ML SDV ONE (16:39)
[2020-12-11] MEDS ORDERED: Glycopyrrolate 0.2 MG/ML SDV ONE (16:39)
[2020-12-11] MEDS ORDERED: Iopamidol 408 MG/ML 20 ML SDV ONE (16:47)
[2020-12-11] MEDS ORDERED: fentaNYL 100 MCG/2 ML SDV IVPUSH PRN (16:49)
[2020-12-11] MEDS ORDERED: Acetaminophen 1,000 MG in Premix Bag 1 BAG IV PRN (16:49)
--- NOTE | 2020-12-11 16:49 | PCM.PREANE ---
Preanesthetic Assessment - Anesthesia/Transfusion/Family Hx Anesthesia History: Prior Anesthesia Without Reaction Other Type of Anesthesia Reaction Comment: Adverse reaction to Versed Family History of Anesthesia Reaction: No Transfusion History: No Prior Transfusion(s) Intubation History: Unknown - Review of Systems Pulmonary: Shortness of Breath, Cough Cardiovascular: Chest Pain, Other Gastrointestinal: Abdominal Pain - Physical Assessment NPO Status Date: 12/11/20 NPO Status Time: 00:05 Vital Signs: Last Vital Signs Temp 36.3 C 12/11/20 15:00 Pulse 94 12/11/20 15:00 Resp 18 12/11/20 15:00 BP 129/66 12/11/20 15:00 Pulse Ox 95 12/11/20 15:00 Height: 1.73 m Weight: 73.074 kg ASA Class: 3E - Lab Values: Laboratory Last Values WBC 14.18 K/uL (4.0-11.0) H 12/11/20 10:32 RBC 5.35 M/uL (4.50-5.90) 12/11/20 10:32 Hgb 16.7 g/dL (13.0-17.0) 12/11/20 10:32 Hct 48.3 % (38.0-50.0) 12/11/20 10:32 MCV 90.3 fL (80.0-98.0) 12/11/20 10:32 MCH 31.2 pg (27.0-32.0) 12/11/20 10:32 MCHC 34.6 g/dL (31.0-37.0) 12/11/20 10:32 RDW Std Deviation 43.6 fl (28.0-62.0) 12/11/20 10:32 RDW Coeff of Fahad 13 % (11.0-15.0) 12/11/20 10:32 Plt Count 160 K/uL (150-400) 12/11/20 10:32 MPV 11.80 fL (7.40-12.00) 12/11/20 10:32 Neut % (Auto) 75.6 % (48.0-80.0) 12/11/20 10:32 Lymph % (Auto) 11.9 % (16.0-40.0) L 12/11/20 10:32 [place] % (Auto) 11.6 % (0.0-15.0) 12/11/20 10:32 Eos % (Auto) 0.8 % (0.0-7.0) 12/11/20 10:32 Baso % (Auto) 0.1 % (0.0-1.5) 12/11/20 10:32 Neut # (Auto) 10.7 K/uL (1.4-5.7) H 12/11/20 10:32 Lymph # (Auto) 1.7 K/uL (0.6-2.4) 12/11/20 10:32 [place] # (Auto) 1.7 K/uL (0.0-0.8) H 12/11/20 10:32 Eos # (Auto) 0.1 K/uL (0.0-0.7) 12/11/20 10:32 Baso # (Auto) 0.0 K/uL (0.0-0.1) 12/11/20 10:32 Nucleated RBC % 0.0 /100WBC 12/11/20 10:32 Nucleated RBCs # 0 K/uL 12/11/20 10:32 Sodium 137 mmol/L (136-148) 12/11/20 10:32 Potassium 4.5 mmol/L (3.5-5.1) 12/11/20 10:32 Chloride 104 mmol/L (98-107) 12/11/20 10:32 Carbon Dioxide 22.4 mmol/L (21.0-32.0) 12/11/20 10:32 BUN 24 mg/dL (7.0-18.0) H 12/11/20 10:32 Creatinine 1.7 mg/dL (0.8-1.3) H 12/11/20 10:32 Est Cr Clr Drug Dosing 39.68 mL/min 12/11/20 10:32 Estimated GFR (MDRD) 40.2 ml/min 12/11/20 10:32 Glucose 134 mg/dL (74-106) H 12/11/20 10:32 POC Glucose 105 mg/dL (70-99) H 12/11/20 16:39 Calcium 8.2 mg/dL (8.5-10.1) L 12/11/20 10:32 Phosphorus 5.2 mg/dL (2.6-4.7) H 12/11/20 10:32 Magnesium 2.0 mg/dL (1.8-2.4) 12/11/20 10:32 Total Bilirubin 0.6 mg/dL (0.2-1.0) 12/10/20 23:25 AST 22 IU/L (15-37) 12/10/20 23:25 ALT 63 IU/L (14-63) 12/10/20 23:25 Alkaline Phosphatase 90 U/L (46-116) 12/10/20 23:25 Total Protein 7.2 g/dL (6.4-8.2) 12/10/20 23:25 Albumin 3.6 g/dL (3.4-5.0) 12/10/20 23:25 Globulin 3.6 g/dL (2.6-4.0) 12/10/20 23:25 Albumin/Globulin Ratio 1.0 (0.9-1.6) 12/10/20 23:25 Lipase 13 U/L (73-393) L 12/10/20 23:25 Urine Color YELLOW 12/11/20 00:40 Urine Appearance SLT CLOUDY 12/11/20 00:40 Urine pH 5.0 (5.0-8.0) 12/11/20 00:40 Ur Specific [place] 1.020 (1.001-1.035) 12/11/20 00:40 Urine Protein TRACE mg/dL (NEGATIVE) H 12/11/20 00:40 Urine Glucose (UA) >=1000 mg/dL (NEGATIVE) 12/11/20 00:40 Urine Ketones 15 mg/dL (NEGATIVE) H 12/11/20 00:40 Urine Occult Blood LARGE (NEGATIVE) H 12/11/20 00:40 Urine Nitrite NEGATIVE (NEGATIVE) 12/11/20 00:40 Urine Bilirubin NEGATIVE (NEGATIVE) 12/11/20 00:40 Urine Urobilinogen 0.2 EU/dL (<2.0) 12/11/20 00:40 Ur Leukocyte Esterase NEGATIVE (NEGATIVE) 12/11/20 00:40 Urine RBC 10-15 (0-2/HPF) 12/11/20 00:40 Urine WBC 4-8 (0-5/HPF) 12/11/20 00:40 Ur Epithelial Cells FEW (NONE-FEW) 12/11/20 00:40 Calcium Oxalate Crystal MODERATE (NEGATIVE) 12/11/20 00:40 Urine Bacteria FEW (NEGATIVE) 12/11/20 00:40 SARS-CoV-2 RNA (ABDULAZIZ) NEGATIVE (NEGATIVE) 12/11/20 02:15 - Allergies Allergies/Adverse Reactions: Allergies Allergy/AdvReac Type Severity Reaction Status Date / Time midazolam HCl [From Versed] Allergy Severe Change Verified 12/11/20 04:51 Mental Status mercury (elemental) Allergy Rash Verified 12/11/20 04:51 - Acknowledgements Anesthesia Type Planned: MAC Pt an Appropriate Candidate for the Planned Anesthesia: Yes Alternatives and Risks of Anesthesia Discussed w Pt/Guardian: Yes Pt/Guardian Understands and Agrees with Anesthesia Plan: Yes PreAnesthesia Questionnaire HEENT History: Reports: Hard of Hearing, Other (See Below) Other HEENT History: wears glasses, has upper partial removable denture Cardiovascular History: Reports: CAD, High Cholesterol, Hypertension, [place] Other Cardiovascular History: previoiusly took medication for hypertension Respiratory History: Reports: None Other Respiratory History: 59 yr history of smoking, current use 1 pack per day Gastrointestinal History: Reports: Diverticulosis Other Gastrointestinal History: hx: Pancreatic surgery Genitourinary History: Reports: Renal Calculus Other Genitourinary History: Kidney stones about a year ago Musculoskeletal History: Reports: Fracture, Osteoarthritis Other Musculoskeletal History: hx of fx wrist Neurological History: Reports: Concussion, Head Trauma Psychiatric History: Reports: None Endocrine/Metabolic History: Reports: Diabetes, Type II Hematologic History: Reports: None Immunologic History: Reports: None Oncologic (Cancer) History: Reports: None Dermatologic History: Reports: None - Infectious Disease History Infectious Disease History: Reports: Chicken Pox - Past Surgical History Head Surgeries/Procedures: Reports: None HEENT Surgical History: Reports: None Cardiovascular Surgical History: Reports: Coronary Artery Stent Respiratory Surgical History: Reports: None GI Surgical History: Reports: Other (See Below) Other GI Surgeries/Procedures: repair of traumatic injury to pancreas (pancreatic resection) Neurological Surgical History: Reports: None Musculoskeletal Surgical History: Reports: None Other Musculoskeletal Surgeries/Procedures:: Hx of excision of infected right breast mass Oncologic Surgical History: Reports: Other (See Below) - SUBSTANCE USE Tobacco Use Status *Q: Current Every Day Tobacco User Tobacco Use Within Last Twelve Months: Cigarettes Second Hand Smoke Exposure: Yes Recreational Drug Use History: Yes Recreational Drug Type: Reports: Marijuana/Hashish - HOME MEDS Home Medications: Home Meds Insulin Glarg,Human.Rec.Analog [LantUS Solostar] 30 units SUBCUT QAM 03/25/17 [History] Aspirin 1 tab PO DAILY 06/18/20 [History] Clopidogrel [Plavix] 75 mg PO DAILY 06/18/20 [History] Insulin Aspart [NovoLOG] 1 injection INJECT ASDIRECTED 06/18/20 [History] Rosuvastatin [Crestor] 5 mg PO DAILY 12/10/20 [History] Empagliflozin [Jardiance] 25 mg PO QAM 12/11/20 [History] - CURRENT (IN HOUSE) MEDS Current Meds: Current Medications Albuterol/Ipratropium (Albuterol/Ipratropium 3.0-0.5 Mg/3 Ml Neb Soln) 3 ml NEB Q4HRRT PRN PRN Reason: Shortness Of Breath/wheezing Aspirin (Aspirin 81 Mg Tab.Chew) 81 mg PO DAILY [facility] Dextrose/Water (50% Dextrose In Water 50 Ml Syringe) 50 ml IVPUSH ASDIRECTED PRN PRN Reason: Hypoglycemia Last Admin: 12/11/20 14:10 Dose: 50 ml Documented by: Glucagon (Glucagon,Human Recombinant 1 Mg Vial) 1 mg IM ASDIRECTED PRN PRN Reason: Hypoglycemia Lactated Ringer's (Ringers, Lactated) 1,000 mls @ 125 mls/hr IV ASDIRECTED ROSENDO Last Admin: 12/11/20 14:04 Dose: 125 mls/hr Documented by: Pantoprazole Sodium 40 mg/ (Sodium Chloride) 10 mls @ 200 mls/hr IV DAILY [facility] Last Admin: 12/11/20 08:29 Dose: 200 mls/hr Documented by: Ceftriaxone Sodium/Dextrose 1 (gm/ Premix) 50 mls @ 100 mls/hr IV Q24H [facility] Insulin Aspart (Insulin Aspart 100 Units/Ml 3 Ml Pen) 0 unit SUBCUT Q6H [facility]; Protocol Last Admin: 12/11/20 11:59 Dose: Not Given Documented by: Morphine Sulfate (Morphine 2 Mg/Ml Syringe) 2 mg IVPUSH Q3H PRN PRN Reason: Pain (severe 7-10) Stop: 12/12/20 05:07 Last Admin: 12/11/20 14:14 Dose: 2 mg Documented by: Ondansetron HCl (Ondansetron 4 Mg/2 Ml Sdv) 4 mg IVPUSH Q4H PRN PRN Reason: Nausea/Vomiting Rosuvastatin 10 Mg (Tab) 0.5 each PO DAILY [facility] Tamsulosin HCl (Tamsulosin 0.4 Mg Cap.Er) 0.4 mg PO PCBREAKFAST [facility] Last Admin: 12/11/20 08:31 Dose: 0.4 mg Documented by: Discontinued Medications Ceftriaxone Sodium (Ceftriaxone 1 Gm Vial) 1 gm IVPUSH ONETIME ONE Stop: 12/11/20 02:20 Last Admin: 12/11/20 02:31 Dose: 1 gm Documented by: Fentanyl (Fentanyl 100 Mcg/2 Ml Sdv) Confirm Administered Dose 100 mcg .ROUTE .STK-MED ONE Stop: 12/11/20 16:39 Glycopyrrolate (Glycopyrrolate 0.2 Mg/Ml Sdv) Confirm Administered Dose 0.2 mg .ROUTE .STK-MED ONE Stop: 12/11/20 16:40 Sodium Chloride (Normal Saline) 1,000 mls @ 1,000 mls/hr IV .Bolus ONE Stop: 12/11/20 03:19 Last Admin: 12/11/20 02:30 Dose: 1,000 mls/hr Documented by: Iopamidol (Iopamidol 755 Mg/Ml 500 Ml Multipack Bottle) 100 ml IVPUSH ONETIME STA Stop: 12/11/20 00:43 Last Admin: 12/11/20 00:43 Dose: 100 ml Documented by: Ketorolac Tromethamine (Ketorolac 30 Mg/Ml Sdv) Confirm Administered Dose 30 mg .ROUTE .STK-MED ONE Stop: 12/10/20 23:33 Last Admin: 12/10/20 23:35 Dose: Not Given Documented by: Ketorolac Tromethamine (Ketorolac 30 Mg/Ml Sdv) 30 mg IVPUSH ONETIME ONE Stop: 12/10/20 23:35 Last Admin: 12/10/20 23:35 Dose: 30 mg Documented by: Ketorolac Tromethamine (Ketorolac 30 Mg/Ml Sdv) Confirm Administered Dose 30 mg .ROUTE .STK-MED ONE Stop: 12/11/20 16:40 Lidocaine (Lidocaine 2% 5 Ml Sdv) Confirm Administered Dose 5 ml .ROUTE .STK-MED ONE Stop: 12/11/20 16:40 Ondansetron HCl (Ondansetron 4 Mg/2 Ml Sdv) Confirm Administered Dose 4 mg .ROUTE .STK-MED ONE Stop: 12/10/20 23:33 Last Admin: 12/10/20 23:35 Dose: Not Given Documented by: Ondansetron HCl (Ondansetron 4 Mg/2 Ml Sdv) 4 mg IVPUSH ONETIME ONE Stop: 12/10/20 23:34 Last Admin: 12/10/20 23:34 Dose: 4 mg Documented by: Ondansetron HCl (Ondansetron 4 Mg/2 Ml Sdv) Confirm Administered Dose 4 mg .ROUTE .STK-MED ONE Stop: 12/11/20 16:40 Propofol (Propofol 200 Mg/20 Ml Sdv) Confirm Administered Dose 200 mg .ROUTE .STK-MED ONE Stop: 12/11/20 16:39 Propofol (Propofol 200 Mg/20 Ml Sdv) Confirm Administered Dose 200 mg .ROUTE .STK-MED ONE Stop: 12/11/20 16:41 Rosuvastatin Calcium (Rosuvastatin 10 Mg Tab) 10 mg PO DAILY [facility] Last Admin: 12/11/20 08:31 Dose: 10 mg Documented by:
[2020-12-11] MEDS ORDERED: ceFAZolin 1 GM Vial ONE (17:28)
[2020-12-11] MEDS ORDERED: Sodium Chloride 0.9% 20 ML ONE (17:28)
--- NOTE | 2020-12-11 18:05 | PCM.POSTAN ---
POST ANESTHESIA ASSESSMENT - MENTAL STATUS Mental Status: Alert - VITAL SIGNS Vital Signs: Last Vital Signs Temp 36.2 C 12/11/20 17:51 Pulse 89 12/11/20 18:00 Resp 20 12/11/20 18:00 BP 96/46 L 12/11/20 18:00 Pulse Ox 92 L 12/11/20 18:00 - RESPIRATORY Respiratory Status: Respiratory Rate WNL - CARDIOVASCULAR CV Status: Pulse Rate WNL - GASTROINTESTINAL GI Status: No Symptoms - POST OP HYDRATION Hydration Status: Adequate & Stable
--- NOTE | 2020-12-11 18:05 | PCM48HPAN ---
Post Anesthesia Note - EVALUATION WITHIN 48HRS OF ANESTHETIC Vital Signs in Normal Range: Yes Patient Participated in Evaluation: Yes Respiratory Function Stable: Yes Airway Patent: Yes Cardiovascular Function Stable: Yes Hydration Status Stable: Yes Pain Control Satisfactory: Yes Nausea and Vomiting Control Satisfactory: Yes Mental Status Recovered: Yes Vital Signs: Last Vital Signs Temp 97.2 F 12/11/20 17:51 Pulse 89 12/11/20 18:00 Resp 20 12/11/20 18:00 BP 96/46 L 12/11/20 18:00 Pulse Ox 92 L 12/11/20 18:00
--- NOTE | 2020-12-11 18:05 | PCM.POSTAN ---
POST ANESTHESIA ASSESSMENT - MENTAL STATUS Mental Status: Alert, Oriented - VITAL SIGNS Vital Signs: Last Vital Signs Temp 97.2 F 12/11/20 17:51 Pulse 89 12/11/20 18:00 Resp 20 12/11/20 18:00 BP 96/46 L 12/11/20 18:00 Pulse Ox 92 L 12/11/20 18:00 - RESPIRATORY Respiratory Status: Respiratory Rate WNL, Airway Patent, O2 Saturation Stable - CARDIOVASCULAR CV Status: Pulse Rate WNL, Blood Pressure Stable - GASTROINTESTINAL GI Status: No Symptoms - POST OP HYDRATION Hydration Status: Adequate & Stable
--- NOTE | 2020-12-11 18:05 | PCM48HPAN ---
Post Anesthesia Note - EVALUATION WITHIN 48HRS OF ANESTHETIC Vital Signs in Normal Range: Yes Patient Participated in Evaluation: Yes Respiratory Function Stable: Yes Airway Patent: Yes Cardiovascular Function Stable: Yes Hydration Status Stable: Yes Pain Control Satisfactory: Yes Nausea and Vomiting Control Satisfactory: Yes Mental Status Recovered: Yes Vital Signs: Last Vital Signs Temp 36.2 C 12/11/20 17:51 Pulse 89 12/11/20 18:00 Resp 20 12/11/20 18:00 BP 96/46 L 12/11/20 18:00 Pulse Ox 92 L 12/11/20 18:00
[2020-12-11] MEDS ORDERED: Lactated Ringers 500 ML IV ONE (18:22)
--- NOTE | 2020-12-11 18:31 | PCM.DCSUM1 ---
Discharge Summary - Hospital Course Diagnosis: Stroke: No - Discharge Data Discharge Disposition: Home, Self-Care 01 Condition: Good - Referral to Home Health Primary Care Physician: PCP None - Patient Summary/Data Consults: Consultations 12/11/20 05:10 Consult to Physician [CONS] Stat - Patient Instructions Activity: As Tolerated Driving: Do Not Drive Showering/Bathing: Shower in AM (see me in 2 weeks) - Discharge Plan *PRESCRIPTION DRUG MONITORING PROGRAM REVIEWED*: Not Applicable *COPY OF PRESCRIPTION DRUG MONITORING REPORT IN PATIENT MICHAELA: Not Applicable Home Medications: Home Meds Insulin Glarg,Human.Rec.Analog [LantUS Solostar] 30 units SUBCUT QAM 03/25/17 [History] Aspirin 1 tab PO DAILY 06/18/20 [History] Clopidogrel [Plavix] 75 mg PO DAILY 06/18/20 [History] Insulin Aspart [NovoLOG] 1 injection INJECT ASDIRECTED 06/18/20 [History] Rosuvastatin [Crestor] 5 mg PO DAILY 12/10/20 [History] Empagliflozin [Jardiance] 25 mg PO QAM 12/11/20 [History] Patient Handouts: Kidney Stones Forms: ED Department Discharge Referrals: PCP,None [Primary Care Provider] - - Patient Data Vitals - Most Recent: Last Vital Signs Temp 36.9 C 12/11/20 18:26 Pulse 105 H 12/11/20 18:26 Resp 16 12/11/20 18:26 BP 99/54 L 12/11/20 18:26 Pulse Ox 90 L 12/11/20 18:26 Weight - Most Recent: 73.074 kg I&O - Last 24 hours: Intake & Output 12/11/20 12/11/20 12/11/20 06:59 14:59 22:59 Intake Total 10 2048 Output Total 1100 Balance 10 948 Lab Results - Last 24 hrs: Laboratory Results - last 24 hr 12/10/20 12/10/20 12/11/20 Range/Units 23:25 23:25 00:40 WBC 14.08 H (4.0-11.0) K/uL RBC 5.40 (4.50-5.90) M/uL Hgb 16.7 (13.0-17.0) g/dL Hct 48.6 (38.0-50.0) % MCV 90.0 (80.0-98.0) fL MCH 30.9 (27.0-32.0) pg MCHC 34.4 (31.0-37.0) g/dL RDW Std Deviation 43.6 (28.0-62.0) fl RDW Coeff of Fahad 13 (11.0-15.0) % Plt Count 174 (150-400) K/uL MPV 11.30 (7.40-12.00) fL Neut % (Auto) 79.2 (48.0-80.0) % Lymph % (Auto) 9.4 L (16.0-40.0) % Laurens % (Auto) 10.5 (0.0-15.0) % Eos % (Auto) 0.8 (0.0-7.0) % Baso % (Auto) 0.1 (0.0-1.5) % Neut # (Auto) 11.1 H (1.4-5.7) K/uL Lymph # (Auto) 1.3 (0.6-2.4) K/uL Laurens # (Auto) 1.5 H (0.0-0.8) K/uL Eos # (Auto) 0.1 (0.0-0.7) K/uL Baso # (Auto) 0.0 (0.0-0.1) K/uL Nucleated RBC % 0.0 /100WBC Nucleated RBCs # 0 K/uL Sodium 137 (136-148) mmol/L Potassium 4.1 (3.5-5.1) mmol/L Chloride 101 (98-107) mmol/L Carbon Dioxide 22.5 (21.0-32.0) mmol/L BUN 23 H (7.0-18.0) mg/dL Creatinine 1.4 H (0.8-1.3) mg/dL Est Cr Clr Drug Dosing 46.33 mL/min Estimated GFR (MDRD) 50.2 ml/min Glucose 191 H (74-106) mg/dL POC Glucose (70-99) mg/dL Calcium 8.8 (8.5-10.1) mg/dL Phosphorus 4.6 (2.6-4.7) mg/dL Magnesium 1.9 (1.8-2.4) mg/dL Total Bilirubin 0.6 (0.2-1.0) mg/dL AST 22 (15-37) IU/L ALT 63 (14-63) IU/L Alkaline Phosphatase 90 (46-116) U/L Total Protein 7.2 (6.4-8.2) g/dL Albumin 3.6 (3.4-5.0) g/dL Globulin 3.6 (2.6-4.0) g/dL Albumin/Globulin Ratio 1.0 (0.9-1.6) Lipase 13 L (73-393) U/L Urine Color YELLOW Urine Appearance SLT CLOUDY Urine pH 5.0 (5.0-8.0) Ur Specific Sandy Level 1.020 (1.001-1.035) Urine Protein TRACE H (NEGATIVE) mg/dL Urine Glucose (UA) >=1000 (NEGATIVE) mg/dL Urine Ketones 15 H (NEGATIVE) mg/dL Urine Occult Blood LARGE H (NEGATIVE) Urine Nitrite NEGATIVE (NEGATIVE) Urine Bilirubin NEGATIVE (NEGATIVE) Urine Urobilinogen 0.2 (<2.0) EU/dL Ur Leukocyte Esterase NEGATIVE (NEGATIVE) Urine RBC 10-15 (0-2/HPF) Urine WBC 4-8 (0-5/HPF) Ur Epithelial Cells FEW (NONE-FEW) Calcium Oxalate Crystal MODERATE (NEGATIVE) Urine Bacteria FEW (NEGATIVE) SARS-CoV-2 RNA (ABDULAZIZ) (NEGATIVE) 12/11/20 12/11/20 12/11/20 Range/Units 02:15 05:30 10:32 WBC 14.18 H (4.0-11.0) K/uL RBC 5.35 (4.50-5.90) M/uL Hgb 16.7 (13.0-17.0) g/dL Hct 48.3 (38.0-50.0) % MCV 90.3 (80.0-98.0) fL MCH 31.2 (27.0-32.0) pg MCHC 34.6 (31.0-37.0) g/dL RDW Std Deviation 43.6 (28.0-62.0) fl RDW Coeff of Fahad 13 (11.0-15.0) % Plt Count 160 (150-400) K/uL MPV 11.80 (7.40-12.00) fL Neut % (Auto) 75.6 (48.0-80.0) % Lymph % (Auto) 11.9 L (16.0-40.0) % Laurens % (Auto) 11.6 (0.0-15.0) % Eos % (Auto) 0.8 (0.0-7.0) % Baso % (Auto) 0.1 (0.0-1.5) % Neut # (Auto) 10.7 H (1.4-5.7) K/uL Lymph # (Auto) 1.7 (0.6-2.4) K/uL Laurens # (Auto) 1.7 H (0.0-0.8) K/uL Eos # (Auto) 0.1 (0.0-0.7) K/uL Baso # (Auto) 0.0 (0.0-0.1) K/uL Nucleated RBC % 0.0 /100WBC Nucleated RBCs # 0 K/uL Sodium (136-148) mmol/L Potassium (3.5-5.1) mmol/L Chloride (98-107) mmol/L Carbon Dioxide (21.0-32.0) mmol/L BUN (7.0-18.0) mg/dL Creatinine (0.8-1.3) mg/dL Est Cr Clr Drug Dosing mL/min Estimated GFR (MDRD) ml/min Glucose (74-106) mg/dL POC Glucose 254 H (70-99) mg/dL Calcium (8.5-10.1) mg/dL Phosphorus (2.6-4.7) mg/dL Magnesium (1.8-2.4) mg/dL Total Bilirubin (0.2-1.0) mg/dL AST (15-37) IU/L ALT (14-63) IU/L Alkaline Phosphatase (46-116) U/L Total Protein (6.4-8.2) g/dL Albumin (3.4-5.0) g/dL Globulin (2.6-4.0) g/dL Albumin/Globulin Ratio (0.9-1.6) Lipase (73-393) U/L Urine Color Urine Appearance Urine pH (5.0-8.0) Ur Specific Sandy Level (1.001-1.035) Urine Protein (NEGATIVE) mg/dL Urine Glucose (UA) (NEGATIVE) mg/dL Urine Ketones (NEGATIVE) mg/dL Urine Occult Blood (NEGATIVE) Urine Nitrite (NEGATIVE) Urine Bilirubin (NEGATIVE) Urine Urobilinogen (<2.0) EU/dL Ur Leukocyte Esterase (NEGATIVE) Urine RBC (0-2/HPF) Urine WBC (0-5/HPF) Ur Epithelial Cells (NONE-FEW) Calcium Oxalate Crystal (NEGATIVE) Urine Bacteria (NEGATIVE) SARS-CoV-2 RNA (ABDULAZIZ) NEGATIVE (NEGATIVE) 12/11/20 12/11/20 12/11/20 Range/Units 10:32 11:18 14:07 WBC (4.0-11.0) K/uL RBC (4.50-5.90) M/uL Hgb (13.0-17.0) g/dL Hct (38.0-50.0) % MCV (80.0-98.0) fL MCH (27.0-32.0) pg MCHC (31.0-37.0) g/dL RDW Std Deviation (28.0-62.0) fl RDW Coeff of Fahad (11.0-15.0) % Plt Count (150-400) K/uL MPV (7.40-12.00) fL Neut % (Auto) (48.0-80.0) % Lymph % (Auto) (16.0-40.0) % Laurens % (Auto) (0.0-15.0) % Eos % (Auto) (0.0-7.0) % Baso % (Auto) (0.0-1.5) % Neut # (Auto) (1.4-5.7) K/uL Lymph # (Auto) (0.6-2.4) K/uL Laurens # (Auto) (0.0-0.8) K/uL Eos # (Auto) (0.0-0.7) K/uL Baso # (Auto) (0.0-0.1) K/uL Nucleated RBC % /100WBC Nucleated RBCs # K/uL Sodium 137 (136-148) mmol/L Potassium 4.5 (3.5-5.1) mmol/L Chloride 104 (98-107) mmol/L Carbon Dioxide 22.4 (21.0-32.0) mmol/L BUN 24 H (7.0-18.0) mg/dL Creatinine 1.7 H (0.8-1.3) mg/dL Est Cr Clr Drug Dosing 39.68 mL/min Estimated GFR (MDRD) 40.2 ml/min Glucose 134 H (74-106) mg/dL POC Glucose 94 66 L (70-99) mg/dL Calcium 8.2 L (8.5-10.1) mg/dL Phosphorus 5.2 H (2.6-4.7) mg/dL Magnesium 2.0 (1.8-2.4) mg/dL Total Bilirubin (0.2-1.0) mg/dL AST (15-37) IU/L ALT (14-63) IU/L Alkaline Phosphatase (46-116) U/L Total Protein (6.4-8.2) g/dL Albumin (3.4-5.0) g/dL Globulin (2.6-4.0) g/dL Albumin/Globulin Ratio (0.9-1.6) Lipase (73-393) U/L Urine Color Urine Appearance Urine pH (5.0-8.0) Ur Specific Sandy Level (1.001-1.035) Urine Protein (NEGATIVE) mg/dL Urine Glucose (UA) (NEGATIVE) mg/dL Urine Ketones (NEGATIVE) mg/dL Urine Occult Blood (NEGATIVE) Urine Nitrite (NEGATIVE) Urine Bilirubin (NEGATIVE) Urine Urobilinogen (<2.0) EU/dL Ur Leukocyte Esterase (NEGATIVE) Urine RBC (0-2/HPF) Urine WBC (0-5/HPF) Ur Epithelial Cells (NONE-FEW) Calcium Oxalate Crystal (NEGATIVE) Urine Bacteria (NEGATIVE) SARS-CoV-2 RNA (ABDULAZIZ) (NEGATIVE) 12/11/20 12/11/20 Range/Units 15:01 16:39 WBC (4.0-11.0) K/uL RBC (4.50-5.90) M/uL Hgb (13.0-17.0) g/dL Hct (38.0-50.0) % MCV (80.0-98.0) fL MCH (27.0-32.0) pg MCHC (31.0-37.0) g/dL RDW Std Deviation (28.0-62.0) fl RDW Coeff of Fahad (11.0-15.0) % Plt Count (150-400) K/uL MPV (7.40-12.00) fL Neut % (Auto) (48.0-80.0) % Lymph % (Auto) (16.0-40.0) % Laurens % (Auto) (0.0-15.0) % Eos % (Auto) (0.0-7.0) % Baso % (Auto) (0.0-1.5) % Neut # (Auto) (1.4-5.7) K/uL Lymph # (Auto) (0.6-2.4) K/uL Laurens # (Auto) (0.0-0.8) K/uL Eos # (Auto) (0.0-0.7) K/uL Baso # (Auto) (0.0-0.1) K/uL Nucleated RBC % /100WBC Nucleated RBCs # K/uL Sodium (136-148) mmol/L Potassium (3.5-5.1) mmol/L Chloride (98-107) mmol/L Carbon Dioxide (21.0-32.0) mmol/L BUN (7.0-18.0) mg/dL Creatinine (0.8-1.3) mg/dL Est Cr Clr Drug Dosing mL/min Estimated GFR (MDRD) ml/min Glucose (74-106) mg/dL POC Glucose 128 H 105 H (70-99) mg/dL Calcium (8.5-10.1) mg/dL Phosphorus (2.6-4.7) mg/dL Magnesium (1.8-2.4) mg/dL Total Bilirubin (0.2-1.0) mg/dL AST (15-37) IU/L ALT (14-63) IU/L Alkaline Phosphatase (46-116) U/L Total Protein (6.4-8.2) g/dL Albumin (3.4-5.0) g/dL Globulin (2.6-4.0) g/dL Albumin/Globulin Ratio (0.9-1.6) Lipase (73-393) U/L Urine Color Urine Appearance Urine pH (5.0-8.0) Ur Specific Sandy Level (1.001-1.035) Urine Protein (NEGATIVE) mg/dL Urine Glucose (UA) (NEGATIVE) mg/dL Urine Ketones (NEGATIVE) mg/dL Urine Occult Blood (NEGATIVE) Urine Nitrite (NEGATIVE) Urine Bilirubin (NEGATIVE) Urine Urobilinogen (<2.0) EU/dL Ur Leukocyte Esterase (NEGATIVE) Urine RBC (0-2/HPF) Urine WBC (0-5/HPF) Ur Epithelial Cells (NONE-FEW) Calcium Oxalate Crystal (NEGATIVE) Urine Bacteria (NEGATIVE) SARS-CoV-2 RNA (ABDULAZIZ) (NEGATIVE) Med Orders - Current: Current Medications Albuterol/Ipratropium (Albuterol/Ipratropium 3.0-0.5 Mg/3 Ml Neb Soln) 3 ml NEB Q4HRRT PRN PRN Reason: Shortness Of Breath/wheezing Aspirin (Aspirin 81 Mg Tab.Chew) 81 mg PO DAILY ROSENDO Clopidogrel Bisulfate (Clopidogrel 75 Mg Tab) 75 mg PO DAILY [facility] Dextrose/Water (50% Dextrose In Water 50 Ml Syringe) 50 ml IVPUSH ASDIRECTED PRN PRN Reason: Hypoglycemia Last Admin: 12/11/20 14:10 Dose: 50 ml Documented by: Glucagon (Glucagon,Human Recombinant 1 Mg Vial) 1 mg IM ASDIRECTED PRN PRN Reason: Hypoglycemia Lactated Ringer's (Ringers, Lactated) 1,000 mls @ 125 mls/hr IV ASDIRECTED ROSENDO Last Admin: 12/11/20 14:04 Dose: 125 mls/hr Documented by: Pantoprazole Sodium 40 mg/ (Sodium Chloride) 10 mls @ 200 mls/hr IV DAILY [facility] Last Admin: 12/11/20 08:29 Dose: 200 mls/hr Documented by: Ceftriaxone Sodium/Dextrose 1 (gm/ Premix) 50 mls @ 100 mls/hr IV Q24H [facility] Lactated Ringer's (Ringers, Lactated) 500 mls @ 999 mls/hr IV .BOLUS ONE Stop: 12/11/20 18:52 Insulin Aspart (Insulin Aspart 100 Units/Ml 3 Ml Pen) 0 unit SUBCUT Q6H ROSENDO; Protocol Last Admin: 12/11/20 17:43 Dose: Not Given Documented by: Insulin Glargine (Insulin Glargine,Human Rec. Analog 100 Units/Ml 3 Ml Pen) 30 units SUBCUT QAM [facility] Morphine Sulfate (Morphine 2 Mg/Ml Syringe) 2 mg IVPUSH Q3H PRN PRN Reason: Pain (severe 7-10) Stop: 12/12/20 05:07 Last Admin: 12/11/20 14:14 Dose: 2 mg Documented by: Ondansetron HCl (Ondansetron 4 Mg/2 Ml Sdv) 4 mg IVPUSH Q4H PRN PRN Reason: Nausea/Vomiting Rosuvastatin 10 Mg (Tab) 0.5 each PO DAILY ROSENDO Tamsulosin HCl (Tamsulosin 0.4 Mg Cap.Er) 0.4 mg PO PCBREAKFAST ROESNDO Last Admin: 12/11/20 08:31 Dose: 0.4 mg Documented by: Discontinued Medications Cefazolin Sodium (Cefazolin 1 Gm Vial) Confirm Administered Dose 2 gm .ROUTE .STK-MED ONE Stop: 12/11/20 17:29 Ceftriaxone Sodium (Ceftriaxone 1 Gm Vial) 1 gm IVPUSH ONETIME ONE Stop: 12/11/20 02:20 Last Admin: 12/11/20 02:31 Dose: 1 gm Documented by: Dextrose/Water (50% Dextrose In Water 50 Ml Syringe) 50 ml IVPUSH ASDIRECTED PRN PRN Reason: Hypoglycemia Fentanyl (Fentanyl 100 Mcg/2 Ml Sdv) Confirm Administered Dose 100 mcg .ROUTE .STK-MED ONE Stop: 12/11/20 16:39 Fentanyl (Fentanyl 100 Mcg/2 Ml Sdv) 50 mcg IVPUSH Q5M PRN PRN Reason: Pain Glucagon (Glucagon,Human Recombinant 1 Mg Vial) 1 mg IM ASDIRECTED PRN PRN Reason: Hypoglycemia Glycopyrrolate (Glycopyrrolate 0.2 Mg/Ml Sdv) Confirm Administered Dose 0.2 mg .ROUTE .STK-MED ONE Stop: 12/11/20 16:40 Sodium Chloride (Normal Saline) 1,000 mls @ 1,000 mls/hr IV .Bolus ONE Stop: 12/11/20 03:19 Last Admin: 12/11/20 02:30 Dose: 1,000 mls/hr Documented by: Acetaminophen 1,000 mg/ Premix 100 mls @ 400 mls/hr IV Q6H PRN PRN Reason: Pain Sodium Chloride (Normal Saline) Confirm Administered Dose 20 mls @ as directed .ROUTE .STK-MED ONE Stop: 12/11/20 17:29 Iopamidol (Iopamidol 755 Mg/Ml 500 Ml Multipack Bottle) 100 ml IVPUSH ONETIME STA Stop: 12/11/20 00:43 Last Admin: 12/11/20 00:43 Dose: 100 ml Documented by: Iopamidol (Iopamidol 408 Mg/Ml 20 Ml Sdv) Confirm Administered Dose 20 ml .ROUTE .STK-MED ONE Stop: 12/11/20 16:48 Ketorolac Tromethamine (Ketorolac 30 Mg/Ml Sdv) Confirm Administered Dose 30 mg .ROUTE .STK-MED ONE Stop: 12/10/20 23:33 Last Admin: 12/10/20 23:35 Dose: Not Given Documented by: Ketorolac Tromethamine (Ketorolac 30 Mg/Ml Sdv) 30 mg IVPUSH ONETIME ONE Stop: 12/10/20 23:35 Last Admin: 12/10/20 23:35 Dose: 30 mg Documented by: Ketorolac Tromethamine (Ketorolac 30 Mg/Ml Sdv) Confirm Administered Dose 30 mg .ROUTE .STK-MED ONE Stop: 12/11/20 16:40 Lidocaine (Lidocaine 2% 5 Ml Sdv) Confirm Administered Dose 5 ml .ROUTE .STK-MED ONE Stop: 12/11/20 16:40 Ondansetron HCl (Ondansetron 4 Mg/2 Ml Sdv) Confirm Administered Dose 4 mg .ROUTE .STK-MED ONE Stop: 12/10/20 23:33 Last Admin: 12/10/20 23:35 Dose: Not Given Documented by: Ondansetron HCl (Ondansetron 4 Mg/2 Ml Sdv) 4 mg IVPUSH ONETIME ONE Stop: 12/10/20 23:34 Last Admin: 12/10/20 23:34 Dose: 4 mg Documented by: Ondansetron HCl (Ondansetron 4 Mg/2 Ml Sdv) Confirm Administered Dose 4 mg .ROUTE .STK-MED ONE Stop: 12/11/20 16:40 Propofol (Propofol 200 Mg/20 Ml Sdv) Confirm Administered Dose 0 mg .ROUTE .STK- MED ONE Stop: 12/11/20 16:39 Propofol (Propofol 200 Mg/20 Ml Sdv) Confirm Administered Dose 200 mg .ROUTE . STK-MED ONE Stop: 12/11/20 16:41 Rosuvastatin Calcium (Rosuvastatin 10 Mg Tab) 10 mg PO DAILY [facility]O Last Admin: 12/11/20 08:31 Dose: 10 mg Documented by:
[2020-12-11 19:40] VITALS: BP 109/53; PULSE 81
--- NOTE | 2020-12-11 20:03 | OR ---
SURGEON: Amina Castañeda M.D. DATE OF PROCEDURE: 12/11/2020 PREOPERATIVE DIAGNOSIS: 2.6 cm right ureteropelvic junction stone. POSTOPERATIVE DIAGNOSIS: 2.6 cm right ureteropelvic junction stone. OPERATIONS: Cystoscopy, double-J stent placement. DESCRIPTION: The patient was given adequate sedation. He was placed in dorsal lithotomy position, prepped and draped in sterile drapes. Cystourethroscopy was done that was unremarkable. A guidewire was attempted, however, could not pass beyond the stone, so that was replaced by a Glidewire which easily went alongside the stone up into the renal pelvis over which 26 cm 6-English double-J stent was placed. The position was confirmed on fluoroscopy, the bladder was emptied, and the patient was moved to recovery room in good condition. PLAN: He will have his next step as either percutaneous lithotripsy elsewhere or two, possibly even more, procedures with laser lithotripsy. YANNICK / EDWAR /[id number]
[2020-12-12] MEDS ORDERED: cefTRIAXone 1 GM in Premix Bag 1 BAG IV SCH (02:00)
--- NOTE | 2020-12-12 05:09 | CONS ---
DATE OF CONSULTATION: 12/11/2020 DATE OF : 1950 PRIMARY CARE PHYSICIAN: None PCP HISTORY OF PRESENT ILLNESS: Young is a 70-year-old diabetic, insulin-dependent. He was admitted through the emergency room this morning with sudden onset of right flank pain. His evaluation included a normal white blood count, hemoglobin of 16, a UA that showed microscopic hematuria, 4 to 8 wbc's per high-power field. CT scan that showed a 2.6 cm right UPJ stone. The patient had history of stones in the past x1. That stone apparently passed by itself. PAST MEDICAL HISTORY: Significant for having had a cardiac event and ended up with a cardiac stent x1, and he is currently on Plavix that was about a year ago. He is also diabetic, insulin-dependent. His CT scan also showed chronic pancreatitis. He said he had surgery to his pancreas and I have seen the scars on his belly. PHYSICAL EXAMINATION: GENERAL: He is alert. He is oriented. HEART: Sinus tachycardia. LUNGS: Clear. He is a smoker. ABDOMEN: Negative. DIAGNOSIS: Right ureteropelvic junction stone, 2.6 cm. PLAN: Today is cystoscopy, double-J stent placement. He needs to be off Plavix for five days before any surgery is done. My office will arrange for him to have his next procedure and that can potentially be here, however, in light of my intermediate coming up at the end of this month, I might have to be sending him elsewhere. YANNICK / EDWAR /[id number]
[2020-12-12] MEDS ORDERED: Aspirin 81 MG Tab.Chew PO SCH (09:00)
[2020-12-12] MEDS ORDERED: Insulin Glargine,Human Rec. Analog 100 Units/ML 3 ML Pen SUBCUT SCH (09:00)
[2020-12-12] MEDS ORDERED: Rosuvastatin 10 MG Tab PO SCH (09:00)
[2020-12-12] MEDS ORDERED: Clopidogrel 75 MG Tab PO SCH (09:00)
--- NOTE | 2020-12-13 14:03 | CR ---
INDICATION: Ureteral stent placement TECHNIQUE: Abdomen 1 view. A single fluoroscopic saved image was obtained. Fluoroscopic time 6 seconds total COMPARISON: CT abdomen and pelvis 12/11/2020 FINDINGS/IMPRESSION: A single fluoroscopic image was obtained of the right upper quadrant of the abdomen. A ureteral stent is partially visualized. The proximal aspect of the catheter projects over the right renal pelvis. Large probable calcification projects over the upper ureter, similarly positioned to the recent CT. Dictated by Amarilis Kohler MD @ 12/13/2020 2:02:[address] Amarilis Kohler @ Dec 13 2020 2:02PM
== END 2020-12-11 20:10 | disposition home or self-care (01) ==
LOC: MW.ED 22:36 → MW.MS 12-11 02:18
PROVIDERS: ADMIT Student in an Organized Health Care Education/Training Program; ATTEND Student in an Organized Health Care Education/Training Program
DX: N13.2 Hydronephrosis with renal and ureteral calculous obstruction (principal); I25.10 Atherosclerotic heart disease of native coronary artery without angina pectoris; E11.9 Type 2 diabetes mellitus without complications; F17.210 Nicotine dependence, cigarettes, uncomplicated; E78.00 Pure hypercholesterolemia, unspecified; I25.2 Old myocardial infarction; I10 Essential (primary) hypertension; Z01.812 Encounter for preprocedural laboratory examination; Z20.822 Contact with and (suspected) exposure to COVID-19; Z79.82 Long term (current) use of aspirin; Z79.899 Other long term (current) drug therapy; Z95.5 Presence of coronary angioplasty implant and graft; Z79.4 Long term (current) use of insulin; Z88.8 Allergy status to other drugs, medicaments and biological substances
CPT/HCPCS: 36415; 52332; 74177; 76000; 80048; 80053; 81001; 82947; 83690; 83735; 84100; 85025; 96374; 96375; 99285; A9270; C9113; J0690; J0696; J1885; J2270; J2405; J2704; J3490; J7030; J7120; Q9967; U0002; 96376; 99283; G0378; J3010; Q9966

== ENCOUNTER 2021-03-02 18:34 | Emergency (ER) | payer OTHER, MEDICARE ==
[2021-03-02] MEDS: Sodium Chloride 0.9% 2.5 ML Syringe FLUSH PRN (18:43)
[2021-03-02] MEDS: Sodium Chloride 0.9% 10 ML Syringe FLUSH PRN (18:43)
[2021-03-02] MEDS: Clopidogrel 75 MG Tab PO ONE (18:43)
[2021-03-02] MEDS: Tenecteplase 50 MG Kit IV STA (18:45)
[2021-03-02] MEDS: Heparin Sodium 5,000 Units/ML Vial IVPUSH ONE (18:52)
--- NOTE | 2021-03-02 18:53 | EDM.PDOC ---
ED HPI GENERAL MEDICAL PROBLEM - General Chief Complaint: Chest Pain Stated Complaint: CHEST PAINS Time Seen by Provider: 03/02/21 18:36 Source of Information: Reports: Patient, EMS History Limitations: Reports: No Limitations - History of Present Illness INITIAL COMMENTS - FREE TEXT/NARRATIVE: 70-year-old male past medical history CAD status post [facility], insulin-dependent diabetes, hypertension presents for chest pain. Patient notes that around 4 PM he began to experience a left substernal chest pain radiating down the left arm associated with shortness of breath. Pain became a bit better with time but was not going away prompting him to call EMS. Patient notes that he is typically on aspirin and Plavix but was off of his blood thinners due to a recent procedure for kidney stones. Chest Pain Score (Numeric/FACES): 3 - Related Data Allergies Allergy/AdvReac Type Severity Reaction Status Date / Time midazolam HCl [From Versed] Allergy Severe Change Verified 03/02/21 18:35 Mental Status mercury (elemental) Allergy Rash Verified 03/02/21 18:35 Home Meds: Home Meds Insulin Glarg,Human.Rec.Analog [LantUS Solostar] 30 units SUBCUT QAM 03/25/17 [History] Aspirin 1 tab PO DAILY 06/18/20 [History] Clopidogrel [Plavix] 75 mg PO DAILY 06/18/20 [History] Insulin Aspart [NovoLOG] 1 injection INJECT ASDIRECTED 06/18/20 [History] Rosuvastatin [Crestor] 5 mg PO DAILY 12/10/20 [History] Empagliflozin [Jardiance] 25 mg PO QAM 12/11/20 [History] Past Medical History HEENT History: Reports: Hard of Hearing, Other (See Below) Other HEENT History: wears glasses, has upper partial removable denture Cardiovascular History: Reports: CAD, High Cholesterol, Hypertension, [facility] Other Cardiovascular History: previoiusly took medication for hypertension Respiratory History: Reports: None Other Respiratory History: 59 yr history of smoking, current use 1 pack per day Gastrointestinal History: Reports: Diverticulosis Other Gastrointestinal History: hx: Pancreatic surgery Genitourinary History: Reports: Renal Calculus Other Genitourinary History: Kidney stones about a year ago Musculoskeletal History: Reports: Fracture, Osteoarthritis Other Musculoskeletal History: hx of fx wrist Neurological History: Reports: Concussion, Head Trauma Psychiatric History: Reports: None Endocrine/Metabolic History: Reports: Diabetes, Type II Insulin Pump Model and Vp Care Management: None Hematologic History: Reports: None Immunologic History: Reports: None Oncologic (Cancer) History: Reports: None Dermatologic History: Reports: None - Infectious Disease History Infectious Disease History: Reports: Chicken Pox - Past Surgical History Head Surgeries/Procedures: Reports: None HEENT Surgical History: Reports: None Cardiovascular Surgical History: Reports: Coronary Artery Stent Respiratory Surgical History: Reports: None GI Surgical History: Reports: Other (See Below) Other GI Surgeries/Procedures: repair of traumatic injury to pancreas (pancreatic resection) Neurological Surgical History: Reports: None Musculoskeletal Surgical History: Reports: None Other Musculoskeletal Surgeries/Procedures:: Hx of excision of infected right breast mass Oncologic Surgical History: Reports: Other (See Below) Social & Family History - Family History Family Medical History: No Pertinent Family History - Caffeine Use Caffeine Use: Reports: None - Recreational Drug Use Recreational Drug Use: No ED ROS GENERAL - Review of Systems Review Of Systems: Comprehensive ROS is negative, except as noted in HPI. ED EXAM, GENERAL - Physical Exam Exam: See Below Exam Limited By: No Limitations General Appearance: Alert, WD/WN, No Apparent Distress Ears: Hearing Grossly Normal Throat/Mouth: Normal Voice, No Airway Compromise Head: Atraumatic, Normocephalic Neck: Normal Inspection Respiratory/Chest: No Respiratory Distress, Lungs Clear, Normal Breath Sounds, No Accessory Muscle Use Cardiovascular: Normal Peripheral Pulses, Regular Rate, Rhythm, No Edema GI/Abdominal: Soft, Non-Tender Extremities: Normal Inspection Neurological: Alert, Normal Cognition Psychiatric: Normal Affect, Normal Mood Skin Exam: Warm, Dry, Intact, Normal Color Course - Vital Signs Last Recorded V/S: Last Vital Signs Temp 97.1 F 03/02/21 18:35 Pulse 87 03/02/21 18:35 Resp 18 03/02/21 18:35 BP 154/84 H 03/02/21 18:35 Pulse Ox 94 L 03/02/21 18:35 - Orders/Labs/Meds Orders: Active Orders 24 hr Category Date Time Status Cardiac Monitoring [RC] . DIRECTED Care 03/02/21 18:37 Active EKG Documentation Completion [RC] STAT Care 03/02/21 18:37 Active Pulse Oximetry [RC] ASDIRECTED Care 03/02/21 18:37 Active Chest 1V Frontal [CR] Stat Exams 03/02/21 18:38 Ordered B-TYPE NATRIURETIC PEPTIDE,BNP [CHEM] Stat Lab 03/02/21 18:37 Ordered CBC WITH AUTO DIFF [HEME] Stat Lab 03/02/21 18:37 Ordered COMPREHENSIVE METABOLIC PN,CMP [CHEM] Stat Lab 03/02/21 18:37 Ordered INR,PT,PROTHROMBIN TIME [COAG] Stat Lab 03/02/21 18:37 Ordered PTT,PARTIAL THROMBOPLSTIN TIME [COAG] Stat Lab 03/02/21 18:37 Ordered TROPONIN I [CHEM] Stat Lab 03/02/21 18:37 Ordered Heparin Sodium/0.45% NaCl [Heparin 25,000 Units in 1/2 Med 03/02/21 18:45 Active NS 500 ML] 500 ml IV TITRATE Sodium Chloride 0.9% [Saline Flush] Med 03/02/21 18:37 Active 10 ml FLUSH ASDIRECTED PRN Sodium Chloride 0.9% [Saline Flush] Med 03/02/21 18:37 Active 2.5 ml FLUSH ASDIRECTED PRN Saline Lock Insert [OM.PC] Stat Oth 03/02/21 18:37 Ordered Medication Orders Heparin Sodium/Sodium Chloride (Heparin 25,000 Units In 1/2 Ns 500 Ml) 500 mls @ 16.329 mls/hr IV TITRATE ROSENDO; Protocol Sodium Chloride (Sodium Chloride 0.9% 10 Ml Syringe) 10 ml FLUSH ASDIRECTED PRN PRN Reason: Keep Vein Open Last Admin: 03/02/21 18:43 Dose: 10 ml Documented by: ASHLEY Sodium Chloride (Sodium Chloride 0.9% 2.5 Ml Syringe) 2.5 ml FLUSH ASDIRECTED PRN PRN Reason: Keep Vein Open Last Admin: 03/02/21 18:43 Dose: 2.5 ml Documented by: ASHLEY Meds: Medications Generic Name Dose Route Start Last Admin Trade Name Freq PRN Reason Stop Dose Admin Heparin Sodium/Sodium Chloride 500 mls @ 16.329 mls/hr 03/02/21 18:45 Heparin 25,000 Units In 1/2 Ns 500 Ml IV TITRATE ROSENDO Protocol 12 UNITS/KG/HR Sodium Chloride 10 ml 03/02/21 18:37 03/02/21 18:43 Sodium Chloride 0.9% 10 Ml Syringe FLUSH 10 ml ASDIRECTED PRN Administration Keep Vein Open Sodium Chloride 2.5 ml 03/02/21 18:37 03/02/21 18:43 Sodium Chloride 0.9% 2.5 Ml Syringe FLUSH 2.5 ml ASDIRECTED PRN Administration Keep Vein Open Discontinued Medications Generic Name Dose Route Start Last Admin Trade Name Hectorq PRN Reason Stop Dose Admin Clopidogrel Bisulfate 300 mg 03/02/21 18:39 03/02/21 18:43 Clopidogrel 75 Mg Tab PO 03/02/21 18:40 300 mg ONETIME ONE Administration Heparin Sodium (Porcine) 4,000 units 03/02/21 18:39 Heparin Sodium 5,000 Units/Ml Vial IVPUSH 03/02/21 18:40 ONETIME ONE Tenecteplase 35 mg 03/02/21 18:38 03/02/21 18:45 Tenecteplase 50 Mg Kit IV 03/02/21 18:39 35 mg STAT STA Administration Protocol - Re-Assessments/Exams Free Text/Narrative Re-Assessment/Exam: 03/02/21 18:[address] elevation [facility]. Patient has been accepted for transfer of care by Dr. Ward to [facility]. TKnase given in ER. Heparin bolus + drip and plavix given in ED. Patient got ASA 324mg [employer] by EMS. Departure - Departure Time of Disposition: 18:54 Disposition: DC/Tfer to Acute Hospital 02 Condition: Serious Clinical Impression: STEMI (ST elevation myocardial infarction) Qualifiers: Involved coronary artery: unspecified coronary artery Qualified Code(s): I21.3 - ST elevation (STEMI) myocardial infarction of unspecified site - Discharge Information Referrals: PCP,None [Primary Care Provider] - Critical Care Note - Critical Care Note Total Time (mins): 35 Sepsis Event Note (ED) - Focused Exam Vital Signs: Vital Signs Temp Pulse Resp BP Pulse Ox 03/02/21 18:35 97.1 F 87 18 154/84 H 94 L - My Orders Last 24 Hours: My Active Orders 03/02/21 18:37 Cardiac Monitoring [RC] . DIRECTED EKG Documentation Completion [RC] STAT Pulse Oximetry [RC] ASDIRECTED B-TYPE NATRIURETIC PEPTIDE,BNP [CHEM] Stat CBC WITH AUTO DIFF [HEME] Stat COMPREHENSIVE METABOLIC PN,CMP [CHEM] Stat INR,PT,PROTHROMBIN TIME [COAG] Stat PTT,PARTIAL THROMBOPLSTIN TIME [COAG] Stat TROPONIN I [CHEM] Stat Sodium Chloride 0.9% [Saline Flush] 10 ml FLUSH ASDIRECTED PRN Sodium Chloride 0.9% [Saline Flush] 2.5 ml FLUSH ASDIRECTED PRN Saline Lock Insert [OM.PC] Stat 03/02/21 18:38 Chest 1V Frontal [CR] Stat 03/02/21 18:45 Heparin Sodium/0.45% NaCl [Heparin 25,000 Units in 1/2 NS 500 ML] 500 ml IV TITR ATE - Assessment/Plan Last 24 Hours: My Active Orders 03/02/21 18:37 Cardiac Monitoring [RC] . DIRECTED EKG Documentation Completion [RC] STAT Pulse Oximetry [RC] ASDIRECTED B-TYPE NATRIURETIC PEPTIDE,BNP [CHEM] Stat CBC WITH AUTO DIFF [HEME] Stat COMPREHENSIVE METABOLIC PN,CMP [CHEM] Stat INR,PT,PROTHROMBIN TIME [COAG] Stat PTT,PARTIAL THROMBOPLSTIN TIME [COAG] Stat TROPONIN I [CHEM] Stat Sodium Chloride 0.9% [Saline Flush] 10 ml FLUSH ASDIRECTED PRN Sodium Chloride 0.9% [Saline Flush] 2.5 ml FLUSH ASDIRECTED PRN Saline Lock Insert [OM.PC] Stat 03/02/21 18:38 Chest 1V Frontal [CR] Stat 03/02/21 18:45 Heparin Sodium/0.45% NaCl [Heparin 25,000 Units in 1/2 NS 500 ML] 500 ml IV TITRATE
[2021-03-02] MEDS: Heparin Sodium/0.45% NaCl 500 ML IV SCH (18:54)
[2021-03-02 19:16] LABS: BLOOD UREA NITROGEN,BUN 11 mg/dL (7.0-18.0); CARBON DIOXIDE,CO2 23.2 mmol/L (21.0-32.0); CHLORIDE,CL 99 mmol/L (98-107); GLUCOSE RANDOM 136 mg/dL (74-106); POTASSIUM,K 3.4 mmol/L (3.5-5.1); SODIUM,NA 137 mmol/L (136-148)
[2021-03-02 19:24] VITALS: BP 142/78; PULSE 81
--- NOTE | 2021-03-02 19:58 | CR ---
Clinical indication : STEMI. COMPARISON: 02/03/2001. FINDINGS: The heart size is magnified the AP technique. There are mild interstitial fibrotic changes within both lungs. The upper lobe pulmonary vasculature is normal. There are no pleural fluid collections. The bony thorax appears intact. IMPRESSION: Mild interstitial fibrotic changes bilaterally. Dictated by Luis Carlos Rodriguez MD @ 03/02/2021 7:55:54 PM (Electronically Signed)
== END 2021-03-02 19:22 ==
LOC: MW.ED 18:34
DX: I21.3 ST elevation (STEMI) myocardial infarction of unspecified site (principal); I25.10 Atherosclerotic heart disease of native coronary artery without angina pectoris; I10 Essential (primary) hypertension; E11.9 Type 2 diabetes mellitus without complications; Z91.82 Personal history of military deployment; Z79.02 Long term (current) use of antithrombotics/antiplatelets; Z88.8 Allergy status to other drugs, medicaments and biological substances; Z87.891 Personal history of nicotine dependence; Z91.048 Other nonmedicinal substance allergy status
CPT/HCPCS: 36415; 71045; 80053; 83880; 84484; 85025; 85610; 85730; 92977; 93005; 96365; 99285; A9270; J1644; J3101

== ENCOUNTER 2022-11-18 13:09 | Emergency (ER) | payer OTHER, MEDICARE ==
[2022-11-18 14:33] LABS: BILIRUBIN,URINE NEGATIVE (NEGATIVE); COLOR,URINE YELLOW; GLUCOSE,URINE >=1000 mg/dL (NEGATIVE); KETONES,URINE NEGATIVE (NEGATIVE); LEUKOCYTE ESTERASE,URINE TRACE (NEGATIVE); NITRITE,URINE NEGATIVE (NEGATIVE); OCCULT BLOOD,URINE MODERATE (NEGATIVE); PROTEIN,URINE TRACE mg/dL (NEGATIVE); UROBILINOGEN,URINE 0.2 EU/dL (<2.0)
[2022-11-18] MEDS ORDERED: Sodium Chloride 0.9% 1,000 ML IV ONE (14:35)
[2022-11-18 14:49] LABS: APPEARANCE,URINE CLOUDY; BACTERIA,URINE 1+ (NEGATIVE); EPITHELIAL CELLS,URINE FEW (NONE-FEW); RBC,URINE 0-2 (0-2/HPF); WBC,URINE 20-30 (0-5/HPF)
[2022-11-18 15:14] LABS: BASOPHILS PERCENT AUTO 0.1 % (0.0-1.5); EOSINOPHILS ABSOLUTE AUTO 0.1 K/uL (0.0-0.7); EOSINOPHILS PERCENT AUTO 0.3 % (0.0-7.0); HEMATOCRIT 47.6 % (38.0-50.0); HEMOGLOBIN 16.2 g/dL (13.0-17.0); LYMPHOCYTES ABSOLUTE AUTO 1.1 K/uL (0.6-2.4); LYMPHOCYTES PERCENT AUTO 7.4 % (16.0-40.0); MEAN CORPUSCULAR VOLUME 91.2 fL (80.0-98.0); MONOCYTES ABSOLUTE AUTO 1.2 K/uL (0.0-0.8); MONOCYTES PERCENT AUTO 8.1 % (0.0-15.0); NEUTROPHILS PERCENT AUTO 84.1 % (48.0-80.0); NRBC ABSOLUTE 0 K/uL; PLATELET COUNT,PLT 129 K/uL (150-400); RED BLOOD CELL COUNT 5.22 M/uL (4.50-5.90); WHITE BLOOD CELL COUNT,WBC 14.32 K/uL (4.0-11.0)
[2022-11-18 15:36] LABS: A/G RATIO 0.9 (0.9-1.6); ALBUMIN 3.3 g/dL (3.4-5.0); BILIRUBIN TOTAL 0.7 mg/dL (0.2-1.0); CALCIUM 8.5 mg/dL (8.5-10.1); CARBON DIOXIDE,CO2 27.1 mmol/L (21.0-32.0); CREATININE 1.3 mg/dL (0.8-1.3); EST CRCL DRUG DOSING (CG) 48.48 mL/min; POTASSIUM,K 3.7 mmol/L (3.5-5.1); PROTEIN TOTAL,TP 7.2 g/dL (6.4-8.2)
[2022-11-18 15:41] LABS: LACTIC ACID 1.5 mmol/L (0.4-2.0)
[2022-11-18] MEDS ORDERED: cefTRIAXone 1 GM in Sodium Chloride 0.9% 50 ML IV ONE (16:03)
[2022-11-18 16:36] VITALS: BP 143/68; PULSE 87
== END 2022-11-18 16:35 ==
LOC: MW.ED 13:09
DX: N39.0 Urinary tract infection, site not specified (principal); I25.10 Atherosclerotic heart disease of native coronary artery without angina pectoris; I10 Essential (primary) hypertension; I25.2 Old myocardial infarction; E78.00 Pure hypercholesterolemia, unspecified; E11.9 Type 2 diabetes mellitus without complications; M19.90 Unspecified osteoarthritis, unspecified site; F17.210 Nicotine dependence, cigarettes, uncomplicated; Z88.4 Allergy status to anesthetic agent; Z79.82 Long term (current) use of aspirin; Z79.4 Long term (current) use of insulin; Z79.02 Long term (current) use of antithrombotics/antiplatelets; Z79.899 Other long term (current) drug therapy
CPT/HCPCS: 36415; 74176; 80053; 81001; 83605; 83690; 85025; 87086; 87088; 87186; 96365; 99284; J0696; J3490; J7030

== ENCOUNTER 2023-07-20 14:37 | Emergency (ER) | payer OTHER, MEDICARE ==
[2023-07-20 15:50] VITALS: BP 145/70; PULSE 66
== END 2023-07-20 17:04 | disposition home or self-care (01) ==
LOC: MW.ED 14:37
DX: K04.7 Periapical abscess without sinus (principal); I10 Essential (primary) hypertension; E78.00 Pure hypercholesterolemia, unspecified; I25.10 Atherosclerotic heart disease of native coronary artery without angina pectoris; I25.2 Old myocardial infarction; E11.9 Type 2 diabetes mellitus without complications; M19.90 Unspecified osteoarthritis, unspecified site; F17.210 Nicotine dependence, cigarettes, uncomplicated; Z95.5 Presence of coronary angioplasty implant and graft; Z79.4 Long term (current) use of insulin; Z79.82 Long term (current) use of aspirin; Z79.899 Other long term (current) drug therapy; Z88.4 Allergy status to anesthetic agent; Z91.048 Other nonmedicinal substance allergy status; Z79.02 Long term (current) use of antithrombotics/antiplatelets
CPT/HCPCS: 99282

== ENCOUNTER 2023-10-31 09:08 | Emergency (ER) | payer OTHER, MEDICARE ==
[2023-10-31] MEDS: Diphtheria,Pertussis(Acell),Tetanus Vaccine 0.5 ML Syringe IM ONE (09:48)
[2023-10-31] MEDS: Lidocaine 1% 5 ML VIAL INJECT ONE (09:49)
[2023-10-31 10:36] VITALS: BP 134/67; PULSE 70
== END 2023-10-31 10:35 | disposition home or self-care (01) ==
LOC: MW.ED 09:08
DX: S61.200A Unspecified open wound of right index finger without damage to nail, initial encounter (principal); I25.2 Old myocardial infarction; E11.9 Type 2 diabetes mellitus without complications; Z23 Encounter for immunization; Z88.8 Allergy status to other drugs, medicaments and biological substances; Z79.82 Long term (current) use of aspirin; Z79.899 Other long term (current) drug therapy; Z79.4 Long term (current) use of insulin; W26.8XXA Contact with other sharp object(s), not elsewhere classified, initial encounter
CPT/HCPCS: 12001; 90471; 90715; 99283; 99283-25; J3490

== ENCOUNTER 2024-09-29 10:36 | Emergency (ER) | payer MEDICARE, OTHER ==
[2024-09-29 10:55] VITALS: BP 113/55; PULSE 72
[2024-09-29] MEDS: Sulfamethoxazole/Trimethoprim 800-160 MG Tab PO ONE (11:11)
== END 2024-09-29 11:15 | disposition home or self-care (01) ==
LOC: MW.ED 10:36
DX: L02.213 Cutaneous abscess of chest wall (principal); I25.2 Old myocardial infarction; E11.9 Type 2 diabetes mellitus without complications; M19.90 Unspecified osteoarthritis, unspecified site; Z95.5 Presence of coronary angioplasty implant and graft; Z88.8 Allergy status to other drugs, medicaments and biological substances; Z79.4 Long term (current) use of insulin; Z79.82 Long term (current) use of aspirin; Z79.899 Other long term (current) drug therapy; Z75.3 Unavailability and inaccessibility of health-care facilities
CPT/HCPCS: 99283; A9270

== ENCOUNTER 2024-10-04 08:45 | Emergency (ER) | payer OTHER ==
[2024-10-04 09:34] VITALS: BP 138/91; PULSE 72
== END 2024-10-04 09:34 | disposition home or self-care (01) ==
LOC: MW.ED 08:45
DX: L03.313 Cellulitis of chest wall (principal); I25.2 Old myocardial infarction; E11.9 Type 2 diabetes mellitus without complications; Z88.4 Allergy status to anesthetic agent; Z88.8 Allergy status to other drugs, medicaments and biological substances; Z79.4 Long term (current) use of insulin; Z79.82 Long term (current) use of aspirin; Z79.02 Long term (current) use of antithrombotics/antiplatelets; Z95.5 Presence of coronary angioplasty implant and graft
CPT/HCPCS: 99283

== ENCOUNTER 2024-10-27 13:14 | Emergency (ER) | payer OTHER ==
[2024-10-27] MEDS ORDERED: Aspirin 81 MG Tab.Chew ONE (13:42)
[2024-10-27] MEDS ORDERED: Sodium Chloride 0.9% 10 ML Syringe FLUSH PRN (13:48)
[2024-10-27] MEDS ORDERED: Sodium Chloride 0.9% 2.5 ML Syringe FLUSH PRN (13:48)
[2024-10-27] MEDS ORDERED: Sodium Chloride 0.9% 20 ML SDV IV PRN (13:48)
[2024-10-27] MEDS: Aspirin 81 MG Tab.Chew PO ONE (13:54)
[2024-10-27 13:59] LABS: BASOPHILS ABSOLUTE AUTO 0.04 K/uL (0.00-0.20); BASOPHILS PERCENT AUTO 0.6 % (0.0-1.0); EOSINOPHILS ABSOLUTE AUTO 0.15 K/uL (0.00-0.45); EOSINOPHILS PERCENT AUTO 2.3 % (0.0-6.0); HEMATOCRIT 45.4 % (42.0-52.0); HEMOGLOBIN 15.1 g/dL (14.0-18.0); IMMATURE GRAN ABSOLUTE AUTO 0.02 K/uL (0.00-0.05); IMMATURE GRAN PERCENT AUTO 0.3 % (0.0-0.4); LYMPHOCYTES ABSOLUTE AUTO 1.57 K/uL (1.00-4.80); LYMPHOCYTES PERCENT AUTO 23.8 % (24.0-44.0); MEAN CORPUSCULAR HEMOGLOBIN 31.5 pg (28.0-32.0); MEAN CORPUSCULAR HGB CONC 33.3 g/dL (32.0-36.0); MEAN CORPUSCULAR VOLUME 94.6 fL (83.0-99.0); MEAN PLATELET VOLUME 11.6 fL (9.4-12.4); MONOCYTES ABSOLUTE AUTO 0.59 K/uL (0.00-0.80); MONOCYTES PERCENT AUTO 8.9 % (0.0-8.0); NEUTROPHILS ABSOLUTE AUTO 4.24 K/uL (1.80-7.70); NEUTROPHILS PERCENT AUTO 64.1 % (41.0-71.0); PLATELET COUNT,PLT 147 K/uL (150-400); WHITE BLOOD CELL COUNT,WBC 6.61 K/uL (3.9-11.3)
[2024-10-27 14:33] LABS: A/G RATIO 1.4 (0.9-1.6); ALBUMIN 3.9 g/dL (3.4-5.0); BILIRUBIN TOTAL 0.8 mg/dL (0.2-1.0); CALCIUM 8.5 mg/dL (8.5-10.1); CARBON DIOXIDE,CO2 28.3 mmol/L (21.0-32.0); CREATININE 1.3 mg/dL (0.8-1.3); EST CRCL DRUG DOSING (CG) 49.04 mL/min; POTASSIUM,K 4.2 mmol/L (3.5-5.1); PROTEIN TOTAL,TP 6.6 g/dL (6.4-8.2); TSH ULTRASENSITIVE 2.16 uIU/mL (0.36-3.74)
[2024-10-27 15:45] LABS: APPEARANCE,URINE CLEAR; BILIRUBIN,URINE NEGATIVE (NEGATIVE); COLOR,URINE YELLOW; GLUCOSE,URINE >=1000 mg/dL (NEGATIVE); KETONES,URINE NEGATIVE (NEGATIVE); LEUKOCYTE ESTERASE,URINE NEGATIVE (NEGATIVE); NITRITE,URINE NEGATIVE (NEGATIVE); OCCULT BLOOD,URINE NEGATIVE (NEGATIVE); PROTEIN,URINE NEGATIVE (NEGATIVE); UROBILINOGEN,URINE 0.2 EU/dL (<2.0)
[2024-10-27 17:20] VITALS: BP 147/77; PULSE 71
== END 2024-10-27 19:11 ==
LOC: MW.ED 13:14
DX: R42 Dizziness and giddiness (principal); R00.1 Bradycardia, unspecified; E11.9 Type 2 diabetes mellitus without complications; Z79.899 Other long term (current) drug therapy; Z79.82 Long term (current) use of aspirin; Z79.4 Long term (current) use of insulin; Z91.048 Other nonmedicinal substance allergy status; Z88.8 Allergy status to other drugs, medicaments and biological substances
CPT/HCPCS: 70450; 71045; 80053; 81003; 83735; 83880; 84443; 84484; 85025; 93005; 99285; A9270; 93010

== ENCOUNTER 2025-06-05 10:29 | Emergency (ER) | payer OTHER ==
[2025-06-05 11:02] VITALS: BP 144/67; PULSE 76
== END 2025-06-05 12:57 | disposition home or self-care (01) ==
LOC: MW.ED 10:29
DX: S22.31XA Fracture of one rib, right side, initial encounter for closed fracture (principal); Z88.8 Allergy status to other drugs, medicaments and biological substances; Z79.82 Long term (current) use of aspirin; Z79.2 Long term (current) use of antibiotics; W00.0XXA Fall on same level due to ice and snow, initial encounter
CPT/HCPCS: 70450; 70450-26; 71250; 71250-26; 72125; 72125-26; 99283